=== PATIENT | male | born 2000 | race Caucasian/White ===

== ENCOUNTER → 2020-05-29 | Outpatient (CLI) | payer BC, SELFPAY ==
[2013-05-03 05:03] VITALS: BMI 21.6
== END | disposition home or self-care (01) ==
LOC: LABSPEC 14:58
PROVIDERS: PCP Family Medicine; Visit Provider Family Medicine
DX: Z20.828 Contact with and (suspected) exposure to other viral communicable diseases (principal)
CPT/HCPCS: 87635; U0002

== ENCOUNTER 2024-02-12 01:45 | Emergency (ER) | payer BC, SELFPAY ==
[2024-02-12 01:47] VITALS: BP 173/93; PULSE 101; RESP 18; TEMP 36.6; O2SAT 98; BMI 26.3
--- NOTE | 2024-02-12 02:25 | EDS_ITS ---
HPI History of Present Illness Chief Complaint: Anxiety Informant: patient and spouse/S.O. Narrative Narrative: Presents here with spouse for evaluation. Patient increase anxiety with insomnia. Symptoms last 2 to 3 weeks after reported falling out with a friend . Intermittent insomnia worsened over last 4 days. He has had suicidal thoughts without a plan. Rare alcohol use. Denies recreational drugs. Saw his PCP today Dr. Milton Estrella, started on fluoxetine magnesium and doxepin. Has not started the fluoxetine. He was told the doxepin will help him sleep he took at 9:30 PM he is unable to sleep therefore he came here. He has not seen a counselor or psychiatrist in the past. He states his PCP is aware of his suicidal thoughts. Prior similar symptoms: No PFSH PFSH Home Medications ?Medication ?Instructions ?Recorded ?Last Taken ?Type doxepin 25 mg capsule 25 mg PO QHS anxiety 02/12/24 Unknown History fluoxetine 20 mg tablet 20 mg PO DAILY 02/12/24 Unknown History magnesium oxide 400 mg (241.3 mg 400 mg PO QHS 02/12/24 Unknown History magnesium) tablet trazodone 50 mg tablet 50 mg PO QHS PRN sleep #7 tabs 02/12/24 Unknown Rx Allergy/AdvReac Type Severity Reaction Status Date / Time No Known Allergies Allergy Verified 02/12/24 01:49 Surgical History Hx of appendectomy Social History Smoking Status: Never smoker ROS ROS ED Constitutional Constitutional ED: Denies chills, fever(s) or sweats ENT ENT ED: Denies sore throat Cardiovascular Cardiovascular: Denies chest pain, leg edema, palpitations or racing heartbeat Respiratory/Chest Respiratory/Chest: Denies cough, dyspnea or dyspnea on exertion Gastrointestinal Gastrointestinal: Denies abdominal pain, diarrhea, nausea or vomiting Genitourinary Genitourinary ED: Denies dysuria, hematuria or urinary frequency Musculoskeletal Musculoskeletal: Denies back pain, extremity pain or neck pain Integumentary Denies rash or wounds Neurologic Neurologic: Denies headache(s), paresthesias or weakness Psychiatric Psychiatric: Reports anxiety, suicidal ideation and other Details: Insomnia EXAM Physical Exam Const Vital Signs: 02/12/24 01:47 Temperature 97.8 F Temperature Source Oral Pulse Rate 101 H Respiratory Rate 18 Blood Pressure 173/93 H Blood Pressure Mean 119 Pulse Ox 98 Positive well nourished and well developed General Appearance ED: well developed and NAD HEENT Reports moist mucous membranes normocephalic and atraumatic Eyes General Eye ED: Yes normal appearance of both eyes Neck full ROM Chest Wall Chest: Negative for tenderness Resp normal respiratory effort and normal air movement Effort and Inspection: symmetric chest movement; Negative for respiratory distress Cardio regular rate, regular rhythm and no murmurs Peripheral Pulses: pulses 2+ throughout GI normal to inspection, nondistended, normoactive bowel sounds and non-tender Palpation: Negative for guarding or rebound tenderness present Extremity normal to inspection General Extremety ED: Negative for edema or tenderness General Extremity: Negative for edema Neuro oriented x3 and no sensory deficits noted Sensorium / Orientation: awake and alert Psych Psych Narrative: Calm, cooperative. Suicidal ideation no plan. Normal thought content. Skin no rashes or lesions noted and no wounds MDM MDM MDM Narrative Medical decision making narrative: Interventions / MDM: Differential diagnosis: Insomnia, anxiety, suicidal ideations. Diagnosis considered but do not suspect: N/A My EKG interpretation: N/A Imaging independently reviewed and interpreted by myself: N/A External documents reviewed: N/A Test considered but not ordered:N/A ED course: Patient presenting primary concerns for insomnia. Recent stressor with following up with a friend. Suicidal ideation without any plans. He is cooperative. Do not feel he is a current threat to himself. I discussed with patient can try trazodone for his insomnia for which she agreed. He will hold his doxepin. First dose given in ED. He is given suicidal information and strict return precautions otherwise discussed if medications does work to follow-up with his PCP for continued refills. Patient's spouse understands and agrees with plan. All questions were answered. Re-evaluation: stable Disposition discussed with patient/family/significant other: Patient and spouse Case discussed with consulting clinician: N/A This note was generated with [employer] dictation software. It may contain incorrect words, spelling, and punctuation that were not noted in checking the note before signing. Discharge Plan Triage Chief Complaint: Anxiety ED Provider: Joshua Cordero Dx/Rx/DC Orders Clinical Impression: Insomnia, Anxiety, Suicidal ideation Instructions: Suicide Warning What To Do, ED Anxiety Reaction, ED Insomnia Prescriptions: New trazodone 50 mg tablet 50 mg PO QHS PRN (Reason: sleep) Qty: 7 0RF No Action doxepin 25 mg capsule 25 mg PO QHS fluoxetine 20 mg tablet 20 mg PO DAILY Patient Comments: pt has not started med yet magnesium oxide 400 mg (241.3 mg magnesium) tablet 400 mg PO QHS Primary Care Provider: Milton Estrella Referrals: Milton Estrella MD [Primary Care Provider] - 5-7 Days Activity Restrictions/Additional Instructions: Take trazodone to try to help with sleep. Do not take doxepin while using trazodone. Start your fluoxetine as prescribed by your doctor. Follow-up with Dr. Estrella for reevaluation and continued treatment. Develop worsening suicidal thoughts specially with any plans, return to the ED for reevaluation. Print Language: Luxembourger Disposition Disposition: Home, Self Care Discharge Date/Time: 02/12/24 02:40
[2024-02-12] MEDS: traZODone 50 MG Tablet PO (02:34)
== END 2024-02-12 02:40 | disposition home or self-care (01) ==
PROVIDERS: Emergency Provider Emergency Medicine; PCP Family Medicine; Visit Provider Emergency Medicine
DX: F41.9 Anxiety disorder, unspecified (principal); G47.00 Insomnia, unspecified; R45.851 Suicidal ideations
CPT/HCPCS: 99282

== ENCOUNTER 2024-07-19 08:00 | Outpatient (RCR) | payer BC, SELFPAY ==
--- NOTE | 2024-07-19 09:15 | BH.MTP_ITS ---
Master Treatment Plan Patient Information Program Physician:: Dr. Wanda Aguilar Primary Therapist:: Lisa PETTY Psychiatric Diagnoses Psychiatric Diagnoses:: Major depressive disorder, recurrent, severe without psychosis (F33.2); OCD (F42.2); Generalized anxiety disorder Diagnosis Code(s):: F 33.2; F 42.2 Estimated LOS Estimated LOS (in weeks):: 6 Problem/Goal #1 Problem/Goal #1 Stated Goal:: Pt will decrease depressive symptoms, hopelessness, isolation, thoughts of , and negative self-talk. Description of Barriers: Pt reports issues with sleep due to intrusive thoughts, but it is more under control now. Pt reports his OCD has been hindering him from living life. Functional Impact: Pt is a 24-year-old male with a history of OCD and MDD. Pt was referred to [facility] due to worsening symptoms of anxiety and depression over the past few months. Pt's mental health began to decompensate after a fall out with a friend that triggered panic and insomnia. At admission, pt presents with hopelessness, worthlessness, and passive thoughts of . Pt also has intrusive thoughts about killing himself and he has told this to his who has removed guns from the home. Pt has panic attacks several times a week. Pt's OCD is currently manifesting with sleep and includes rituals pt must do at night to get good sleep. Pt's symptoms are impacting his social functioning and his overall quality of life. Goal Relevant Strengths/Supports: Pt is established with outpatient counseling (Sita Espino) and he has a PCP that prescribes medication. Pt also has support from his and he has hobbies he enjoys. Objectives Objective #1: Stated Objective: Pt will learn and utilize 2-3 healthy coping strategies to better manage depressive symptoms as shown by a decrease of DMS-5 symptoms for depression and SI. Interventions: Through group and individual sessions, therapist will help pt identify triggers and warning signs of depression and guilt including emotional, physical, and behavioral changes. Therapist will teach pt various coping skills to manage symptoms and give pt tangible resources to use to regula te emotions. Therapist will use cognitive restructuring techniques and help pt gain awareness of negative thoughts that reinforce guilt and depression. Therapist will provide psychoeducation on maintenance cycles and help pt learn ways to break unhealthy maintenance cycles. Therapist will help pt incorporate behavioral activation and assist pt in setting SMART goals. Discharge Criteria: Pt will have met this goal when can report learning and using at least 2 coping skills to manage depressive symptoms and reduce isolation. Additionally, pt will have met this goal when pt's DSM-5 scores for depression and SI decrease. Target Date: 08/30/24 Review Date: 08/16/24 Status: open Objective #2: Stated Objective: Pt will identify at least 2-3 negative self-talk messages used to reinforce negative core beliefs, worthlessness, and isolation and replace thoughts with balanced, realistic messages. Interventions: Therapist will help pt identify distorted, negative beliefs about self and replace with more realistic, affirmative messages. Therapist will use CBT and DBT to help pt increase insight to the connection between thoughts, emotions, and behaviors. Therapist will encourage pt to practice thought challenging. Discharge Criteria: Pt will have achieved this goal when can verbalize at least 2 cognitive distortions and effectively replace those thoughts with affirmative messages. Target Date: 08/30/24 Review Date: 08/09/24 Status: open Problem/Goal #2 Problem/Goal #2 Stated Goal:: Pt will reduce overall frequency and intensity of anxiety and OCD symptoms so that daily functioning is less impaired. Description of Barriers: Pt reports issues with sleep due to intrusive thoughts, but it is more under control now. Pt reports his OCD has been hindering him from living life. Functional Impact: Pt is a 24-year-old male with a history of OCD and MDD. Pt was referred to [facility] due to worsening symptoms of anxiety and depression over the past few months. Pt's mental health began to decompensate after a fall out with a friend that triggered panic and insomnia. At admission, pt presents with hopelessness, worthlessness, and passive thoughts of . Pt also has intrusive thoughts about killing himself and he has told this to his who has removed guns from the home. Pt has panic attacks several times a week. Pt's OCD is currently manifesting with sleep and includes rituals pt must do at night to get good sleep. Pt's symptoms are impacting his social functioning and his overall quality of life. Goal Relevant Strengths/Supports: Pt is established with outpatient counseling (Sita Espino) and he has a PCP that prescribes medication. Pt also has support from his and he has hobbies he enjoys. Objectives Objective #1: Stated Objective: Pt will identify 2-3 anxiety and OCD triggers and 2 coping skills to use to manage anxiety and to reduce DSM-5 scores. Interventions: Through group and individual sessions, pt will gain awareness of anxiety and OCD triggers and learn numerous techniques to manage anxiety and OCD symptoms. Therapist will teach mindfulness and other calming techniques to manage symptoms and increase distress tolerance skills. Therapist will also help pt utilize mindfulness skills to sit with the uncomfortable to increase confidence in managing triggers. Discharge Criteria: Pt will have met this goal when pt can identify at least 2 triggers and 2 ways to cope with anxiety and OCD and when his DSM-5 scores have reduced. Target Date: 08/30/24 Review Date: 08/09/24 Status: open Objective #2: Stated Objective: Pt will improve ability to cope with OCD symptoms and reduce avoidance by setting 1-2 small exposure goals each week. Interventions: Through group and individual therapy, pt will gain skills on distress tolerance and sitting with the uncomfortable. Therapist will help pt set small, realistic exposure goals each week. Therapist will have pt practice these goals both in session and at home. Therapist will provide psychoeducation on why this is important to reducing anxiety, OCD, and phobias. Therapist will also provide psychoeducation on intrusive thinking and reducing safety behaviors. Discharge Criteria: Pt will have accomplished this goal when pt can report accomplishing at least 1 exposure goal per week and can report reduced avoidance overall. Target Date: 08/30/24 Review Date: 08/09/24 Status: open
--- NOTE | 2024-07-19 09:15 | BH.PSA_ITS ---
Source of Information Presenting Problems/Circumstances Problems, Referral Source, Mental Status, Client: Pt is a 24-year-old male with a history of OCD and MDD. Pt was referred to [facility] due to worsening symptoms of anxiety and depression over the past few months. Pt's mental health began to decompensate after a fall out with a friend that triggered panic and insomnia. At admission, pt presents with hopelessness, worthlessness, and passive thoughts of . Pt also has intrusive thoughts about killing himself and he has told this to his who has removed guns from the home. Pt has panic attacks several times a week. Pt's OCD is currently manifesting with sleep and includes rituals pt must do at night to get good sleep. Pt's symptoms are impacting his social functioning and his overall quality of life. Psychiatric Presentation Psych Issues & Need for Admission Psychiatric Issues:: 1. Major depressive disorder, recurrent, severe without psychosis (F33.2) 2. OCD (F42.2) 3. Generalized anxiety disorder Past Psychiatric History MH Treatment Hx Treatment History: No psych admits ever. No suicide attempts ever. He has a counselor current at [facility] and first had counseling at age 23. He was first depressed this year and took his first psychiatric medications of any kind this year in January 2024. He discontinued his Prozac in mid April 2024. He has had OCD since childhood but it was very mild and he did not require medications till January 2024. First hospitalization:: n/a Most recent hospitalization:: n/a Medication Trials:: Yes (pt tried prozac and stopped this) ECT Therapy:: No Age of first mental health symptoms: Pt reports OCD symptoms since childhood but they did not impact pt's functioning. Pt's first significant mental health symptoms occurred within the last year. Describe (age, circumstance, etc) any past hospitalizations: Pt denies any hospitalizations Current providers for mental health treatment (counselor, psychiatrist, clinical case manager, etc.): Pt sees Sita Espino at [facility] and he has been seeing her for one month. Development & Family of Origin Childhood Significant Childhood Events: Pt describes his childhood as good and denies any trauma at home. Pt was bullied in middle school and switched schools for this. Family Who currently lives in your home?: Pt lives with his of 7 months and their dog. Describe family composition:: Pt is an only child and he reports his parents were loving. Pt has only had one serious relationship which is with his . They have no children. Family History Family Hx of Psychiatric or AOD Problems: Mother has a history of depression. Maternal aunt has bipolar disorder and a maternal uncle has schizophrenia. Maternal grandfather had drug and alcohol abuse. Ethnicity Culture Do you identify yourself with any particular cultural, ethnic background, or community?: No Sexuality Sexual Orientation: Heterosexual Spirituality Buddhism Do you currently identify with any organized zoroastrianism?: Evangelical Beliefs Is there a particular form of support from this community you can use for your recovery?: Yes Mental Status Memory Recent Memory: Good Remote Memory: Good Concentration Concentration: Good Eye Contact Eye Contact: Fair Speech Speech: Soft Thought Process Thought Process: Obsessions and Ruminations Insight: Good Judgment: Good Behavior: Anxious Orientation Orientation: Time, Person, Place and Situation Appearance Appearance: Neat/clean Mood Mood: Anxious and Depressed Affect Affect: Appropriate/calm Suicide Assessment Suicidal Ideation Have you ever felt like hurting yourself?: Yes Please explain:: He endorses guilt, passive thoughts of , and admits that he had ego dystonic intrusive thoughts that he was going to kill himself with a gun 3 weeks ago but this was an OCD obsession and not a true desire for suicide. Pt's has removed the gun from the home. Pt reports he still has this intrusive thought occasionally and he is fearful. Were you using ETOH/drugs at the time?: No Suicidal Intentional Rating Scale (SIRS): Suicidal thoughts (past) (see above.) Physician Notification Violent Behavior/Abuse History Homicidal Ideation Do you have any homicidal thoughts? If so, explain:: No Abuse Have you ever been abused?: No Life Events Are there any other significant life events?: Hardships (Pt was having issues with insomnia that triggered worsening mental health symptoms.) Safety Do you ever feel threatened in your home? If yes, describe:: No Adult Social History Age 16 to Present Describe your current support system:: For primary support the patient has his and he describes their marriage as good. Substance Use Substance Substance Use Type: Alcohol, Marijuana and Caffeine Specific Drugs What specific drugs have you used?: Non-smoker. No vaping. Used to use marijuana daily for 2 years but has not used marijuana since 1 year ago. Marijuana increased his anxiety and that is why he stopped it. He drinks less than 1 drink of alcohol a week. No other drug use and no rehab ever. 2-3 cups of coffee each morning. IV Substance Use Do you have a history of IV use?: denies. Leisure/Social Activities Interests What do you enjoy or might be interested in learning about?: enjoys riding and being outdoors and working out at the gym. Pt also enjoys disc golf. 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 Service Service Have you ever been in the ?: No Legal History Records Have you had any past legal charges?: No Do you have any current legal charges?: No Have you ever been incarcerated? If yes, describe:: No Court Orders Have you had any past court orders for psychiatric treatment?: No Do you have a present court order for psychiatric treatment?: No Problem Checklist Current Problem Areas Problem List: Depressed mood/sad, Anxiety, Inattention and Sleep problems Discharge Planning Needs Anticipated Follow-Up Mental Health Center (Name/Phone Number):: [facility] Private Therapist/Psychiatrist:: Sita Espino Pressurizer's Assessment Client's Needs What are the client's strengths?: Pt is motivated and connected with outpatient counseling. Pt also is seeing a benefit from his medication adjustment. Diagnoses Diagnoses Diagnosis #1:: Major depressive disorder, recurrent, severe without psychosis (F33.2) Diagnosis #2:: OCD (F42.2) Diagnosis #3:: HIREN Interpretive Summary Interpretive Summary Interpretive Summary: Pt is a 24-year-old male with a history of OCD, anxiety and depression who was referred by a friend of a friend to [facility] for worsening symptoms of depression which worsened after a fall out with a friend in January 2024. Pt currently lives with his of 7 months and their dog. Pt states that following the argument and end of the friendship in January 2024 he began to have severe insomnia which has since resolved and he also felt panic at the time. He was placed on Prozac but says his depression worsened on Prozac so it was discontinued. His depression reached the point that he went to crisis with suicidal ideation with a plan to kill himself with a gun on June 21, 2024. Pt was not admitted to the psychiatric unit at the time. Pt reports belief that he was depressed, but those could have been intrusive thoughts. His has removed the guns from the home and he has no access to them now. 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 Pt states that he has a lot of anxiety around sleeping normally and his intrusive thoughts revolve around mostly being afraid of going to sleep or being afraid that he is going to have difficulty getting to sleep. His rituals include touching things, checking things and counting things. The rituals increased after the argument with his friend but they have not gone back to baseline. For primary support Pt has his and he describes their marriage as good. He endorses hopelessness, worthlessness, sadness although he feels better than he did 2 weeks ago. He denies anhedonia and enjoys riding and being outdoors and working out at the gym. He is sleeping 6 to 8 hours a night and his appetite and weight are unchanged. Energy level is okay as his concentration. He endorses guilt, passive thoughts of , and admits that he had ego dystonic intrusive thoughts that he was going to kill himself with a gun 3 weeks ago but this was an OCD obsession and not a true desire for suicide. He denies homicidal ideation, active or passive true suicidal ideation, hallucinations, delusions or symptoms of jignesh ever. He is a worrier by nature and ruminates negatively. He denies any history of self-harm, seizure or head trauma. He drinks 2 to 3 cups of coffee but only in the morning. He has panic attacks about once a week. He denies eating disorder, trauma or PTSD. Pt denies substance abuse history and reports drinking less than one alcoholic beverage a week. Treatment Plan Recommendations Recommendations Guidelines Recommendations:: Pt will start IOP as the structure, support, education and group therapy will hopefully prevent worsening of Pt's symptoms which could result in hospital admission. The risk, options, possible complications and side effects of the medication were discussed between pt and Dr. Aguilar. Pt is encouraged to attend IOP 3 times a week for 6-8 weeks.
--- NOTE | 2024-07-19 09:15 | BH.PSA_ITS ---
Source of Information Presenting Problems/Circumstances Problems, Referral Source, Mental Status, Client: Pt is a 24-year-old male with a history of OCD and MDD. Pt was referred to [facility] due to worsening symptoms of anxiety and depression over the past few months. Pt's mental health began to decompensate after a fall out with a friend that triggered panic and insomnia. At admission, pt presents with hopelessness, worthlessness, and passive thoughts of . Pt also has intrusive thoughts about killing himself and he has told this to his who has removed guns from the home. Pt has panic attacks several times a week. Pt's OCD is currently manifesting with sleep and includes rituals pt must do at night to get good sleep. Pt's symptoms are impacting his social functioning and his overall quality of life. Psychiatric Presentation Psych Issues & Need for Admission Psychiatric Issues:: 1. Major depressive disorder, recurrent, severe without psychosis (F33.2) 2. OCD (F42.2) 3. Generalized anxiety disorder Past Psychiatric History MH Treatment Hx Treatment History: No psych admits ever. No suicide attempts ever. He has a counselor current at [facility] and first had counseling at age 23. He was first depressed this year and took his first psychiatric medications of any kind this year in January 2024. He discontinued his Prozac in mid April 2024. He has had OCD since childhood but it was very mild and he did not require medications till January 2024. First hospitalization:: n/a Most recent hospitalization:: n/a Medication Trials:: Yes (pt tried prozac and stopped this) ECT Therapy:: No Age of first mental health symptoms: Pt reports OCD symptoms since childhood but they did not impact pt's functioning. Pt's first significant mental health symptoms occurred within the last year. Describe (age, circumstance, etc) any past hospitalizations: Pt denies any hospitalizations Current providers for mental health treatment (counselor, psychiatrist, casework specialist, etc.): Pt sees Sita Espino at [facility] and he has been seeing her for one month. Development & Family of Origin Childhood Significant Childhood Events: Pt describes his childhood as good and denies any trauma at home. Pt was bullied in middle school and switched schools for this. Family Who currently lives in your home?: Pt lives with his of 7 months and their dog. Describe family composition:: Pt is an only child and he reports his parents were loving. Pt has only had one serious relationship which is with his . They have no children. Family History Family Hx of Psychiatric or AOD Problems: Mother has a history of depression. Maternal aunt has bipolar disorder and a maternal uncle has schizophrenia. Maternal grandfather had drug and alcohol abuse. Ethnicity Culture Do you identify yourself with any particular cultural, ethnic background, or community?: No Sexuality Sexual Orientation: Heterosexual Spirituality Mandaen Do you currently identify with any organized sabianist?: Gnosticism Beliefs Is there a particular form of support from this community you can use for your recovery?: Yes Mental Status Memory Recent Memory: Good Remote Memory: Good Concentration Concentration: Good Eye Contact Eye Contact: Fair Speech Speech: Soft Thought Process Thought Process: Obsessions and Ruminations Insight: Good Judgment: Good Behavior: Anxious Orientation Orientation: Time, Person, Place and Situation Appearance Appearance: Neat/clean Mood Mood: Anxious and Depressed Affect Affect: Appropriate/calm Suicide Assessment Suicidal Ideation Have you ever felt like hurting yourself?: Yes Please explain:: He endorses guilt, passive thoughts of , and admits that he had ego dystonic intrusive thoughts that he was going to kill himself with a gun 3 weeks ago but this was an OCD obsession and not a true desire for suicide. Pt's has removed the gun from the home. Pt reports he still has this intrusive thought occasionally and he is fearful. Were you using ETOH/drugs at the time?: No Suicidal Intentional Rating Scale (SIRS): Suicidal thoughts (past) (see above.) Physician Notification Violent Behavior/Abuse History Homicidal Ideation Do you have any homicidal thoughts? If so, explain:: No Abuse Have you ever been abused?: No Life Events Are there any other significant life events?: Hardships (Pt was having issues with insomnia that triggered worsening mental health symptoms.) Safety Do you ever feel threatened in your home? If yes, describe:: No Adult Social History Age 16 to Present Describe your current support system:: For primary support the patient has his and he describes their marriage as good. Substance Use Substance Substance Use Type: Alcohol, Marijuana and Caffeine Specific Drugs What specific drugs have you used?: Non-smoker. No vaping. Used to use marijuana daily for 2 years but has not used marijuana since 1 year ago. Marijuana increased his anxiety and that is why he stopped it. He drinks less than 1 drink of alcohol a week. No other drug use and no rehab ever. 2-3 cups of coffee each morning. IV Substance Use Do you have a history of IV use?: denies. Leisure/Social Activities Interests What do you enjoy or might be interested in learning about?: enjoys riding and being outdoors and working out at the gym. Pt also enjoys disc golf. 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 Service Service Have you ever been in the ?: No Legal History Records Have you had any past legal charges?: No Do you have any current legal charges?: No Have you ever been incarcerated? If yes, describe:: No Court Orders Have you had any past court orders for psychiatric treatment?: No Do you have a present court order for psychiatric treatment?: No Problem Checklist Current Problem Areas Problem List: Depressed mood/sad, Anxiety, Inattention and Sleep problems Discharge Planning Needs Anticipated Follow-Up Mental Health Center (Name/Phone Number):: [facility] Private Therapist/Psychiatrist:: Sita Espino Order Management Specialist's Assessment Client's Needs What are the client's strengths?: Pt is motivated and connected with outpatient counseling. Pt also is seeing a benefit from his medication adjustment. Diagnoses Diagnoses Diagnosis #1:: Major depressive disorder, recurrent, severe without psychosis (F33.2) Diagnosis #2:: OCD (F42.2) Diagnosis #3:: HIREN Interpretive Summary Interpretive Summary Interpretive Summary: Pt is a 24-year-old male with a history of OCD, anxiety and depression who was referred by a friend of a friend to [facility] for worsening symptoms of depression which worsened after a fall out with a friend in January 2024. Pt currently lives with his of 7 months and their dog. Pt states that following the argument and end of the friendship in January 2024 he began to have severe insomnia which has since resolved and he also felt panic at the time. He was placed on Prozac but says his depression worsened on Prozac so it was discontinued. His depression reached the point that he went to crisis with suicidal ideation with a plan to kill himself with a gun on June 21, 2024. Pt was not admitted to the psychiatric unit at the time. Pt reports belief that he was depressed, but those could have been intrusive thoughts. His has removed the guns from the home and he has no access to them now. 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 Pt states that he has a lot of anxiety around sleeping normally and his intrusive thoughts revolve around mostly being afraid of going to sleep or being afraid that he is going to have difficulty getting to sleep. His rituals include touching things, checking things and counting things. The rituals increased after the argument with his friend but they have not gone back to baseline. For primary support Pt has his and he describes their marriage as good. He endorses hopelessness, worthlessness, sadness although he feels better than he did 2 weeks ago. He denies anhedonia and enjoys riding and being outdoors and working out at the gym. He is sleeping 6 to 8 hours a night and his appetite and weight are unchanged. Energy level is okay as his concentration. He endorses guilt, passive thoughts of , and admits that he had ego dystonic intrusive thoughts that he was going to kill himself with a gun 3 weeks ago but this was an OCD obsession and not a true desire for suicide. He denies homicidal ideation, active or passive true suicidal ideation, hallucinations, delusions or symptoms of jignesh ever. He is a worrier by nature and ruminates negatively. He denies any history of self-harm, seizure or head trauma. He drinks 2 to 3 cups of coffee but only in the morning. He has panic attacks about once a week. He denies eating disorder, trauma or PTSD. Pt denies substance abuse history and reports drinking less than one alcoholic beverage a week. Treatment Plan Recommendations Recommendations Guidelines Recommendations:: Pt will start IOP as the structure, support, education and group therapy will hopefully prevent worsening of Pt's symptoms which could result in hospital admission. The risk, options, possible complications and side effects of the medication were discussed between pt and Dr. Aguilar. Pt is encouraged to attend IOP 3 times a week for 6-8 weeks.
--- NOTE | 2024-07-19 09:15 | BH.COMM ---
Communication Note Communication with Client Communication Note: Met with pt to complete initial paperwork and administer the CSSR-S screening and risk assessment. Pt is a mild risk as pt reports passive thoughts of and admits that he had ego dystonic intrusive thoughts that he was going to kill himself with a gun 3 weeks ago but this was an OCD obsession and not a true desire for suicide per pt?s report. Pt denies any thoughts of plan, intent, or thoughts of methods for suicide. Pt denies any history of suicide attempts and denies self-harm. No access to weapons- guns removed from the home. Pt is future oriented. Discussed case with Dr. Aguilar and pt will be admitted to [facility] tx with a diagnosis of MDD, recurrent, severe, without psychosis F 33.2
--- NOTE | 2024-07-19 09:15 | BH.COMM ---
Communication Note Communication with Client Communication Note: Met with pt to complete initial paperwork and administer the CSSR-S screening and risk assessment. Pt is a mild risk as pt reports passive thoughts of and admits that he had ego dystonic intrusive thoughts that he was going to kill himself with a gun 3 weeks ago but this was an OCD obsession and not a true desire for suicide per pt?s report. Pt denies any thoughts of plan, intent, or thoughts of methods for suicide. Pt denies any history of suicide attempts and denies self-harm. No access to weapons- guns removed from the home. Pt is future oriented. Discussed case with Dr. Aguilar and pt will be admitted to [facility] tx with a diagnosis of MDD, recurrent, severe, without psychosis F 33.2
--- NOTE | 2024-07-19 09:59 | BH.MDN_ITS ---
Multi-Disciplinary Note Note 30-min Individual: Time Started:: 08:40 Date: 07/19/24 Purpose of session/treatment goals addressed:: To gather information on pt's current stressors, symptoms, triggers, history, and tx goals. Another goal was to build rapport and provide emotional support. Eye Contact:: Good Motor Activity:: Appropriate Appearance:: Neat Speech:: Soft Mood:: Anxious and Depressed Affect:: Constricted Thoughts:: Linear, Logical and No evidence of hallucinations/delusions noted Staff Interventions:: rapport building, strengths perspective, treatment planning, completed risk assessment / safety planning and goal setting Client Response:: Pt responded well to session, open to meeting with therapist. Pt reports feeling depressed and anxious, but he is hopeful that his recent medication adjustment is going to help level me out. Pt has been seeing Sita Espino at [facility] and he has found her helpful so far. Pt shared that he has intrusive thoughts that change in theme, and currently the theme has been not being able to sleep. Pt's sleep has began to improve, but pt shared he struggled with insomnia for a while which lead to pt seeking IOP. Pt reported he has certain rituals he must do every night to help with sleep. Before sleep, pt shared he had intrusive thoughts about different parts of his body which would case anxiety and even triggered sexual intimacy problems. Pt stated he is open to learning more about intrusive thoughts and ERP to help with his OCD. Pt's first day of IOP tx, so the main goal is for pt to feel comfortable and supported. Pt and therapist will meet weekly. Risks/Concerns:: Pt reports having thoughts of after long days of work. Pt reports he had thoughts of suicide within the past month that pt scared pt. Pt told his he was thinking of shooting himself and his removed the gun from their home. Pt's suicidal ideations could be intrusive thoughts, but pt and his family are taking precautions. Pt denies any active SI, plan, or intent to this therapist. Progress Toward Goals/Plan:: Pt's first day of IOP tx, no progress to document. Pt reports he has been struggling with anxiety, depression, and intrusive thoughts for a while. Pt reports he wants to work on getting back to sleeping without rituals and worry, feeling like himself again, and improving his ability to manage intrusive thoughts. Pt receptive to using tools from ERP and the overcoming unwanted intrusive thoughts workbook. Pt will continue IOP tx to prevent decompensation, improve daily functioning, and increase distress tolerance. Time Stopped:: 09:00
--- NOTE | 2024-07-19 10:15 | BH.SGPN.GN ---
Behaviors/Verbalizations/Mental Status: []Pt alert and oriented, neatly dressed and groomed. Eye contact good. Motor activity appropriate. Speech within normal limits. Affect congruent, mood anxious and depressed. Thoughts linear, logical, no signs of hallucinations or delusions. Client Response/Progress/Benefit: [] Pt was attentive during psychoeducation and participated in group activity. Group discussed what contributes to a person?s perspective and how perspective can positively or negatively impact mental health treatment. Pt reflected on their perspective today and how it is impacting them. Pt shared their perspective is more negative and reported it could cause negative outcomes because I'm not open enough.?Pt appeared to benefit from increasing awareness of different perspectives and how they can affect mental health. Pt will continue IOP tx to prevent decompensation, improve daily functioning, and gain healthy coping skills. Narrative Note: []
--- NOTE | 2024-07-19 10:25 | BH.NA ---
Physical Data Vital Signs Pulse Rate: 87 Blood Pressure: 133/76 Height/Weight Height: 1.88 m Weight:: 86.183 kg Weight in Pounds: 190.0 lbs Current Medication Compliance Medication Compliance Do you take your medication as prescribed?: Yes Nutritional History Appetite Nutritional Instructions: Describe your appetite:: Good Additional nutritional information:: Client denies recent change in appetite or weight. Functional Assessment Sleep Pattern Describe any problems with sleeping: Client states he has been sleeping about 6-8 hours per night most nights. Sensory/Communication Assess Communication Problems Do you have difficulty understanding what people are saying?: No Surgical History Surgical History Have you had any surgeries? If so, list type and date:: Yes (appendectomy) Substance Abuse Substance Abuse Please describe substance abuse in the last 30 days:: Client reports occasional social alcohol use. Client states he is a former cigarette smoker and former vape user. Client states he has used marijuana in the past, but quit about 1 year ago. Client states he drinks about 3 cups of coffee per day but he stops caffeine use at 3pm. Mental Status Summary Mental Status Significant Findings/Observations on Appearance and Mood:: Client is alert and oriented x 4. Client is casually groomed with good hygiene. Client is cooperative with assessment. Client makes fair eye contact. Client's voice has normal rate and volume. Client has a restricted affect. Client makes logical associations and has normal processing. Client denies delusions/hallucinations. Client reports having SI in the past month, but denies current SI. Suicide Assessment Suicidal Ideation Are you currently or have you been suicidal in the past?: Yes (SI with thoughts of methods in the past, denies SI at this time) Physician Notification Past Psychiatric History MH Treatment Hx Past Psychiatric Medications:: Zoloft (side effects), Prozac (states at first he thought it made his depression worse, but states now he thinks maybe the dose just wasn't high enough and he was not having side effects on this medication) Age of first mental health symptoms: Client states he has noticed that he had OCD symptoms for a long time, but states he was just diagnosed in January 2024 when he got mental health treatment for the first time. Describe (age, circumstance, etc) any past hospitalizations: None. Current providers for mental health treatment (counselor, psychiatrist, classification case manager, etc.): Sita Espino PhD at [facility] for counseling, [facility] [employer] [facility] [facility] at [facility] for psychiatry Fall Risk Assessment Age Age: Less than 60 Mental Status Mental Status: Willing & able to ask for assistance when needed Physical Status Physical Status: No problems Impairments Impairments: None Elimination Elimination: Continent AND independent Gait or Balance Gait or Balance: Walks independently Hx of Falls History of falls in the past 6 months: No known history Medications/Substances Psychotropics:: Antidepressants Medications/substances used within the past 24 hours or ordered to administer: 1-2 of the medications/substances listed above Total Score Total Points:: 1 RN Summary of Impressions Impressions Recommendations Impressions: Psychiatric Issues: 1. Major depressive disorder, recurrent, severe without psychosis (F33.2) 2. OCD (F42.2) 3. Generalized anxiety disorder Level of Care How do the client's current symptoms and functional deficits support need for this level of care?: Client was referred to IOP for worsening depression, anxiety and OCD. Client states he had a falling out with a friend in January 2024 which lead to insomnia. Client states insomnia was the reason he first looked for help with his mental health, and states he was then diagnosed with OCD. Client states his depression has been worsening in the last month or more. Client did have SI with thoughts of methods about 1 month ago. Client denies SI at this time. Client states he does have intrusive thoughts, which lead to his compulsions (standing and sitting over and over, checking locks, checking the stove, touching things). Client reports he has been having some panic attacks with shortness of breath that last a few minutes, stating his last one was about 1 week ago. IOP will promote gains and prevent further decompensation while providing social support and skills training.
[2024-07-19 11:07] VITALS: BP 133/76; PULSE 87
--- NOTE | 2024-07-19 11:15 | BH.SGPN.GN ---
Narrative Note: []Behaviors/Verbalizations/Mental Status: []Pt alert and oriented, casually dressed and groomed. Eye contact fair. Motor activity appropriate. Speech within normal limits. Affect congruent, mood anxious. Thoughts linear, logical, no signs of hallucinations or delusions. Client Response/Progress/Benefit: []Pt was attentive and contributed to group discussion. Pt worked with group to identify strategies that can help with challenging negative perspective. Pt stated they can practice looking at positive outcomes to challenge negative perspective. Pt completed strengths exploration worksheet, identifying personal strengths. Pt able to acknowledge how these strengths are helping pt and can continue to help pt in mental health journey. Pt identified wanting to work on leaning on strength of creativity and humor. Benefited from identifying personal strengths and strategies for enhancing use of identified strengths. Pt will continue IOP tx to continue improve functioning, decrease anxious thoughts, and prevent decompensation. Narrative Note: []
--- NOTE | 2024-07-19 12:18 | BH.PSY.EVA_ITS ---
Psychiatric Evaluation Initial Evaluation Initial Evaluation: History of Present Illness: [] The patient is a 24-year-old male with a history of OCD, anxiety and depression who was referred by a friend of a friend to the [facility] behavioral health IOP for worsening symptoms of depression which worsened after a fall out with a friend in January 2024. The patient currently lives with his of 7 months and their dog. Patient states that following the argument and end of the friendship in January 2024 he began to have severe insomnia which has since resolved and he also felt panic at the time. He was placed on Prozac but says his depression worsened on Prozac so it was discontinued. His depression reached the point that he went to crisis with suicidal ideation with a plan to kill himself with a gun on June 21, 2024. Patient was not admitted to psychiatric unit at the time. 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 The patient states that he has a lot of anxiety around sleeping normally and his intrusive thoughts revolve around mostly being afraid of going to sleep or being afraid that he is going to have difficulty getting to sleep. His rituals include touching things, checking things and counting things. The rituals increased after the argument with his friend but they have not gone back to baseline. For primary support the patient has his and he describes their marriage as good. He endorses hopelessness, worthlessness, sadness although he feels better than he did 2 weeks ago. He denies anhedonia and enjoys riding and being outdoors and working out at the gym. He is sleeping 6 to 8 hours a night and his appetite and weight are unchanged. Energy level is okay as his concentration. He endorses guilt, passive thoughts of , and admits that he had ego dystonic intrusive thoughts that he was going to kill himself with a gun 3 weeks ago but this was an OCD obsession and not a true desire for suicide. He denies homicidal ideation, active or passive true suicidal ideation, hallucinations, delusions or symptoms of jignesh ever. He is a worrier by nature and ruminates negatively. He denies any history of self-harm, seizure or head trauma. He drinks 2 to 3 cups of coffee but only in the morning. He has panic attacks about once a week. He denies eating disorder, trauma or PTSD. His has removed the guns from the home and he has no access to them now. Current Psychiatric Medications: [] Clomipramine 150 mg p.o. nightly (dose increased 1 week ago); Zoloft discontinued in April 2024 and Prozac discontinued prior to starting clomipramine. The Prozac helped him but the Zoloft gave him bad side effects. Trazodone 50 mg p.o. nightly; hydroxyzine 50 mg p.o. as needed for sleep but not using it much. Past Psychiatric History: [] No psych admits ever. No suicide attempts ever. He has a counselor and first had counseling at age 23. He was first depressed this year and took his first psychiatric medications of any kind this year in January 2024. He discontinued his Prozac in mid April 2024. He has had OCD since childhood but it was very mild and he did not require medications till January 2024. Substance Use History: [] Non-smoker. No vaping. Used to use marijuana daily for 2 years but has not used marijuana since 1 year ago. Marijuana increased his anxiety and that is why he stopped it. He drinks less than 1 drink of alcohol a week. No other drug use and no rehab ever. Allergies: [] No known allergies Medications: [] Psych meds as dictated above and no other medications. M agnesium supplement only. Past Medical History: [] Denies any medical issues or illnesses. Sexual function is okay but was decreased when he took Zoloft. He had an appendectomy in the past and removal of a benign arm tumor but no other surgeries. Family Psychiatric History: [] Mother is 46 years old and father is 55 years old. Mother has a history of depression. Maternal aunt has bipolar disorder and a maternal uncle has schizophrenia. Maternal grandfather had drug and alcohol abuse. No completed suicides in the family. Personal/Social History: [] Patient was born and raised in [facility] and describes his childhood as good, happy. He was an only child and his parents were and were loving. He denies any physical, verbal or sexual abuse in childhood or adulthood. He did okay in school but states he was bullied in seventh grade but changed schools in eighth grade and did well after that. He graduated high school and got a BA in [employer] writing in [employer] science from [employer]. He has had 1 serious relationship which is his of 7 months who is 24 years old and she works as a secondary market manager at an auction place. The patient has had no other serious relationships. Legal History: [] No arrests. 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 Review of Systems: [] Review of systems negative except as noted in the present illness. Vital Signs: [] Vital signs are reviewed the nurses notes and updated and the patient is deemed medically able to participate in the IOP. Mental Status Examination: [] The patient is a 24-year-old male who appears normal for stated age and is casually dressed and groomed with good hygiene. He is ambulatory with a normal gait and has no psychomotor agitation or retardation. Eye contact is good and speech is normal rate and rhythm and fluent with no pressure. Mood is depressed and anxious. Affect is constricted. Thought process is goal-directed and organized. Thought content: There is evidence of passive thoughts of but there is no evidence of active or passive suicidal ideation. There is evidence of an intrusive, obsessive thoughts of suicidal ideation that occurred 3 weeks ago but was ego-dystonic to the patient and was from OCD. There is no evidence of homicidal ideation, hallucinations, delusions or jignesh. Reality testing is intact. Intelligence is above average. Judgment is intact. Impulsivity is low. Insight: Limited but some present. Diagnoses: [] 1. Major depressive disorder, recurrent, severe without psychosis (F33.2) 2. OCD (F42.2) 3. Generalized anxiety disorder Plan: [] The patient will start the IOP in behavioral health at [facility] as the structure, support, education and group therapy will hopefully prevent worsening of the patient's symptoms which could result in hospital admission. The risk, options, possible complications and side effects of the medication were discussed with the patient and he understands accepts these. The patient complains of constipation from clomipramine and would like to decrease the dose and add another medication for depression and anxiety and OCD. The patient agrees to try Prozac 10 mg p.o. daily and prescription is sent in for this. In 2 weeks he will follow-up with the physician and if he is tolerating the Prozac it will then be increased and the clomipramine will be decreased to 100 mg p.o. daily in 2 weeks. Patient is also encouraged to try MiraLAX for his constipation once daily. The patient will follow-up with his outpatient providers and the IOP physician will see the patient in follow-up in 2 weeks.
--- NOTE | 2024-07-19 12:18 | BH.PSY.EVA_ITS ---
Psychiatric Evaluation Initial Evaluation Initial Evaluation: History of Present Illness: [] The patient is a 24-year-old male with a history of OCD, anxiety and depression who was referred by a friend of a friend to the [facility] behavioral health IOP for worsening symptoms of depression which worsened after a fall out with a friend in January 2024. The patient currently lives with his of 7 months and their dog. Patient states that following the argument and end of the friendship in January 2024 he began to have severe insomnia which has since resolved and he also felt panic at the time. He was placed on Prozac but says his depression worsened on Prozac so it was discontinued. His depression reached the point that he went to crisis with suicidal ideation with a plan to kill himself with a gun on June 21, 2024. Patient was not admitted to psychiatric unit at the time. 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 The patient states that he has a lot of anxiety around sleeping normally and his intrusive thoughts revolve around mostly being afraid of going to sleep or being afraid that he is going to have difficulty getting to sleep. His rituals include touching things, checking things and counting things. The rituals increased after the argument with his friend but they have not gone back to baseline. For primary support the patient has his and he describes their marriage as good. He endorses hopelessness, worthlessness, sadness although he feels better than he did 2 weeks ago. He denies anhedonia and enjoys riding and being outdoors and working out at the gym. He is sleeping 6 to 8 hours a night and his appetite and weight are unchanged. Energy level is okay as his concentration. He endorses guilt, passive thoughts of , and admits that he had ego dystonic intrusive thoughts that he was going to kill himself with a gun 3 weeks ago but this was an OCD obsession and not a true desire for suicide. He denies homicidal ideation, active or passive true suicidal ideation, hallucinations, delusions or symptoms of jignesh ever. He is a worrier by nature and ruminates negatively. He denies any history of self-harm, seizure or head trauma. He drinks 2 to 3 cups of coffee but only in the morning. He has panic attacks about once a week. He denies eating disorder, trauma or PTSD. His has removed the guns from the home and he has no access to them now. Current Psychiatric Medications: [] Clomipramine 150 mg p.o. nightly (dose increased 1 week ago); Zoloft discontinued in April 2024 and Prozac discontinued prior to starting clomipramine. The Prozac helped him but the Zoloft gave him bad side effects. Trazodone 50 mg p.o. nightly; hydroxyzine 50 mg p.o. as needed for sleep but not using it much. Past Psychiatric History: [] No psych admits ever. No suicide attempts ever. He has a counselor and first had counseling at age 23. He was first depressed this year and took his first psychiatric medications of any kind this year in January 2024. He discontinued his Prozac in mid April 2024. He has had OCD since childhood but it was very mild and he did not require medications till January 2024. Substance Use History: [] Non-smoker. No vaping. Used to use marijuana daily for 2 years but has not used marijuana since 1 year ago. Marijuana increased his anxiety and that is why he stopped it. He drinks less than 1 drink of alcohol a week. No other drug use and no rehab ever. Allergies: [] No known allergies Medications: [] Psych meds as dictated above and no other medications. M agnesium supplement only. Past Medical History: [] Denies any medical issues or illnesses. Sexual function is okay but was decreased when he took Zoloft. He had an appendectomy in the past and removal of a benign arm tumor but no other surgeries. Family Psychiatric History: [] Mother is 46 years old and father is 55 years old. Mother has a history of depression. Maternal aunt has bipolar disorder and a maternal uncle has schizophrenia. Maternal grandfather had drug and alcohol abuse. No completed suicides in the family. Personal/Social History: [] Patient was born and raised in [facility] and describes his childhood as good, happy. He was an only child and his parents were and were loving. He denies any physical, verbal or sexual abuse in childhood or adulthood. He did okay in school but states he was bullied in seventh grade but changed schools in eighth grade and did well after that. He graduated high school and got a BA in [employer] writing in [employer] science from [employer]. He has had 1 serious relationship which is his of 7 months who is 24 years old and she works as a music manager at an auction place. The patient has had no other serious relationships. Legal History: [] No arrests. 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 Review of Systems: [] Review of systems negative except as noted in the present illness. Vital Signs: [] Vital signs are reviewed the nurses notes and updated and the patient is deemed medically able to participate in the IOP. Mental Status Examination: [] The patient is a 24-year-old male who appears normal for stated age and is casually dressed and groomed with good hygiene. He is ambulatory with a normal gait and has no psychomotor agitation or retardation. Eye contact is good and speech is normal rate and rhythm and fluent with no pressure. Mood is depressed and anxious. Affect is constricted. Thought process is goal-directed and organized. Thought content: There is evidence of passive thoughts of but there is no evidence of active or passive suicidal ideation. There is evidence of an intrusive, obsessive thoughts of suicidal ideation that occurred 3 weeks ago but was ego-dystonic to the patient and was from OCD. There is no evidence of homicidal ideation, hallucinations, delusions or jignesh. Reality testing is intact. Intelligence is above average. Judgment is intact. Impulsivity is low. Insight: Limited but some present. Diagnoses: [] 1. Major depressive disorder, recurrent, severe without psychosis (F33.2) 2. OCD (F42.2) 3. Generalized anxiety disorder Plan: [] The patient will start the IOP in behavioral health at [facility] as the structure, support, education and group therapy will hopefully prevent worsening of the patient's symptoms which could result in hospital admission. The risk, options, possible complications and side effects of the medication were discussed with the patient and he understands accepts these. The patient complains of constipation from clomipramine and would like to decrease the dose and add another medication for depression and anxiety and OCD. The patient agrees to try Prozac 10 mg p.o. daily and prescription is sent in for this. In 2 weeks he will follow-up with the physician and if he is tolerating the Prozac it will then be increased and the clomipramine will be decreased to 100 mg p.o. daily in 2 weeks. Patient is also encouraged to try MiraLAX for his constipation once daily. The patient will follow-up with his outpatient providers and the IOP physician will see the patient in follow-up in 2 weeks.
--- NOTE | 2024-07-19 12:32 | BH.DR.ITP ---
Initial Treatment Plan Patient Information Visit Information: ADMISSION DATE: EXPECTED LOS: 4-6 weeks Problems/Symptoms Problem #1:: Depression Symptom:: Sadness, hopelessness, worthlessness, guilt, biological disruption of sleep, passive thoughts of Problem #2:: Anxiety Symptom:: Worry, rumination, intrusive thoughts and rituals, panic attacks
--- NOTE | 2024-07-21 09:05 | BH.SGPN.GN ---
Behaviors/Verbalizations/Mental Status: [] Eye contact is good. Motor activity is appropriate. Appearance is casual. Speech is Appropriate. Mood is anxious. Affect is congruent. Thoughts are linear and logical. No evidence of psychosis. Reviewed daily check in sheet and no reports of suicidal ideations or intent. Client Response/Progress/Benefit: [] Pt participated at times during the group discussions. Attentive. Daily symptom tracker notes 3/5 for anxiety and 1/5 for depression. Shared recent mental health wins. He is contemplating making a career change as he is finding that working from home may be negatively impacting his mental health. He elaborated more on this. Progress noted. Benefited from group support, encouragement, and feedback. Will continue in IOP to maintain safety, prevent decompensation, and increase healthy coping. Narrative Note: []
--- NOTE | 2024-07-21 10:10 | BH.SGPN.GN ---
Behaviors/Verbalizations/Mental Status: [] Client alert and oriented, casually dressed and groomed. Eye contact good. Motor activity appropriate. Speech within normal limits. Affect congruent, mood euthymic. Thoughts linear, logical, no signs of hallucinations or delusions. Client Response/Progress/Benefit: [] Client responded well to session AEB providing input, taking notes throughout and listening attentively to others. Client was attentive throughout group activity identifying famous individuals and how they overcame failure to be successful. Client helped group identify how fear of failure can impact mental health and relationships Group identified it leads to self-sabotage, low self confidence, not trying, and isolation. Client participated in experiential activity, working with group members to problem solve. Appeared to benefit from increased knowledge of fear of failure. Will continue IOP tx to improve self-confidence, reduce distorted thinking patterns, and reduce avoidance. Narrative Note: [] Behaviors/Verbalizations/Mental Status: [] Client alert and oriented, casually dressed and groomed. Eye contact good. Motor activity appropriate. Speech within normal limits. Affect congruent, mood euthymic. Thoughts linear, logical, no signs of hallucinations or delusions. Client Response/Progress/Benefit: [] Client responded well to session AEB providing input, taking notes throughout and listening attentively to others. Client was attentive throughout group activity identifying famous individuals and how they overcame failure to be successful. Client helped group identify how fear of failure can impact mental health and relationships Group identified it leads to self-sabotage, low self confidence, not trying, and isolation. Client participated in experiential activity, working with group members to problem solve. Appeared to benefit from increased knowledge of fear of failure. Will continue IOP tx to improve self-confidence, reduce distorted thinking patterns, and reduce avoidance. Narrative Note: []
--- NOTE | 2024-07-21 11:10 | BH.SGPN.GN ---
Behaviors/Verbalizations/Mental Status: [] Client alert and oriented, casually dressed and groomed. Eye contact good. Motor activity appropriate. Speech within normal limits. Affect congruent, mood euthymic. Thoughts linear, logical, no signs of hallucinations or delusions. Client Response/Progress/Benefit: [] Client responded well to session, engaged in the experiential activity and attentive throughout group processing. 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 Client completed fear of failure worksheet and was able to identify thoughts and behaviors that reinforce personal fear of failure including self comparison and fear of rejection. Client participated in small group discussion regarding strategies to overcome fear of failure. Identified wanting to work on utilizing opposite action and consistency. Appeared to benefit from increased knowledge of strategies to combat fear of failure and gaining self-awareness. Client will continue IOP tx to promote gains in reduced depressive symptoms and to reduce anxiety and avoidance. Narrative Note: [] Behaviors/Verbalizations/Mental Status: [] Client alert and oriented, casually dressed and groomed. Eye contact good. Motor activity appropriate. Speech within normal limits. Affect congruent, mood euthymic. Thoughts linear, logical, no signs of hallucinations or delusions. Client Response/Progress/Benefit: [] Client responded well to session, engaged in the experiential activity and attentive throughout group processing. 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 Client completed fear of failure worksheet and was able to identify thoughts and behaviors that reinforce personal fear of failure including self comparison and fear of rejection. Client participated in small group discussion regarding strategies to overcome fear of failure. Identified wanting to work on utilizing opposite action and consistency. Appeared to benefit from increased knowledge of strategies to combat fear of failure and gaining self-awareness. Client will continue IOP tx to promote gains in reduced depressive symptoms and to reduce anxiety and avoidance. Narrative Note: []
== END 2024-07-22 23:59 ==
LOC: BHIOP 08:00
PROVIDERS: PCP Family Medicine; Referring Provider Psychiatry & Neurology Psychiatry; Visit Provider Psychiatry & Neurology Psychiatry
DX: F33.2 Major depressive disorder, recurrent severe without psychotic features (principal); F42.2 Mixed obsessional thoughts and acts; F41.1 Generalized anxiety disorder
CPT/HCPCS: S9480; 90832; 90853

== ENCOUNTER → 2024-07-19 | Outpatient (CLI) | payer BC, SELFPAY ==
[2024-07-19 16:53] LABS: Vitamin D,25 Hydroxy 38.2 ng/mL (30-100)
== END | disposition home or self-care (01) ==
LOC: LAB 13:03
PROVIDERS: PCP Family Medicine; Referring Provider Psychiatry & Neurology Psychiatry; Visit Provider Psychiatry & Neurology Psychiatry
DX: E55.9 Vitamin D deficiency, unspecified (principal)
CPT/HCPCS: 36415; 82306; 84443

== ENCOUNTER 2024-07-24 07:29 | Outpatient (RCR) | payer BC, SELFPAY ==
[2024-07-23 00:25] VITALS: BP 133/76; PULSE 87
--- NOTE | 2024-07-24 09:05 | BH.SGPN.GN ---
Behaviors/Verbalizations/Mental Status: [] Eye contact is good. Motor activity is appropriate. Appearance is casual. Speech is Appropriate. Mood is anxious. Affect is congruent. Thoughts are linear and logical. No evidence of psychosis. Reviewed daily check in sheet and no reports of suicidal ideations or intent. Client Response/Progress/Benefit: [] Pt was an active participant in group discussions. Attentive. Able to identify mental health wins and healthy habits. Utilizing healthy coping skills. He shared that he is practicing reframing and effective communication with his . He reports a recent disagreement which turned out to be a beneficial and productive discussion rather than a agreement which caused significant conflict. He has also begun journaling and making an effort towards behavioral activation such as exercise. He continues to report stressors and depression which impact him daily however some optimism regarding small changes he has made. Progress noted. Benefited from group support, encouragement, and feedback. Will continue in IOP to maintain safety, prevent decompensation, and improve functionoing. Narrative Note: []
--- NOTE | 2024-07-24 10:05 | BH.SGPN.GN ---
Behaviors/Verbalizations/Mental Status: []Pt alert and oriented, neatly dressed and groomed. Eye contact fair. Motor activity appropriate. Speech within normal limits. Affect congruent, mood anxious. Thoughts linear, logical, no signs of hallucinations or delusions. Client Response/Progress/Benefit: [] Pt participated in the group discussions AEB providing input, nodding and taking notes. Attentive during psychoeducation Goal Setting. Participated during the discussion on common barriers. Pt worked with group to identify common barriers to goal setting and pt reported fear of failure and self-doubt. Group also identified benefits of goals as sense of purpose, improved self-confidence, more motivation for other goals, sense of accomplishment, and improved mental health. Pt identified personal benefits to goal setting. Benefited from increased awareness of mental health benefits of goals as well as psychoeducation on SMART goal criteria. Will continue in IOP to prevent decompensation, gain healthy coping skills, and reduce avoidance. ? Narrative Note: []
--- NOTE | 2024-07-24 11:05 | BH.SGPN.GN ---
Behaviors/Verbalizations/Mental Status: [] Pt alert and oriented. Appearance is casual, hygiene is appropriate. Eye contact good. Motor activity appropriate. Speech within normal limits. Affect is anxious. Mood is constricted. Thoughts linear, logical, no signs of hallucinations or delusions. Client Response/Progress/Benefit: [] Pt was engaged during discussion and experiential activity. Completed the worksheet challenging them to develop a personal SMART goal. 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 Believes this goal will benefit them being through feeling more as though he is making progress in his carerr/increase sense of accomplishment. Identified obstacles such as motivation and fear of rejection .Benefited from this group by developing a short-term SMART goal related to mental health. Will continue IOP to prevent decompensation, stabilize mood, and improve functioning Narrative Note: []
--- NOTE | 2024-07-26 09:05 | BH.SGPN.GN ---
Behaviors/Verbalizations/Mental Status: [] Pt alert and oriented, neatly dressed and groomed. Eye contact good. Motor activity appropriate. Speech within normal limits. Affect congruent, mood calm. Thoughts linear, logical, no signs of hallucinations or delusions. Reviewed pt?s symptom tracker, no risk for suicidal ideation, plan, or intent 07/26/24. Client Response/Progress/Benefit: []Pt was an active participant in group discussions. Attentive. Able to identify mental health wins including ?I think my medication is really helping? and finishing some raised garden beds he was working on with his [id number]. ?Pt's stressor today is ?my is leaving for a few days and it?s hard to sleep without her.? The group offered pt encouragement and emotional support which pt reported was helpful. Pt is feeling calm? this morning. Pt receptive to feedback from peers which pt reported was helpful. Progress noted. Benefited from group support, encouragement, and feedback. Will continue IOP tx to prevent decompensation, improve daily functioning, and increase distress tolerance skills. Narrative Note: []
--- NOTE | 2024-07-26 09:05 | BH.SGPN.GN ---
Behaviors/Verbalizations/Mental Status: [] Pt alert and oriented, neatly dressed and groomed. Eye contact good. Motor activity appropriate. Speech within normal limits. Affect congruent, mood calm. Thoughts linear, logical, no signs of hallucinations or delusions. Reviewed pt?s symptom tracker, no risk for suicidal ideation, plan, or intent 07/26/24. Client Response/Progress/Benefit: []Pt was an active participant in group discussions. Attentive. Able to identify mental health wins including ?I think my medication is really helping? and finishing some raised garden beds he was working on with his [id number]. ?Pt's stressor today is ?my is leaving for a few days and it?s hard to sleep without her.? The group offered pt encouragement and emotional support which pt reported was helpful. Pt is feeling calm? this morning. Pt receptive to feedback from peers which pt reported was helpful. Progress noted. Benefited from group support, encouragement, and feedback. Will continue IOP tx to prevent decompensation, improve daily functioning, and increase distress tolerance skills. Narrative Note: []
--- NOTE | 2024-07-26 10:10 | BH.SGPN.GN ---
Behaviors/Verbalizations/Mental Status: []Eye contact is good. Motor activity is appropriate. Appearance is casual. Speech is Appropriate, quiet. Mood is anxious. Affect is congruent. Thoughts are linear and logical. No evidence of psychosis. Client Response/Progress/Benefit: []Pt was an active participant in group discussion. Engaged and attentive during psychoeducation and interactive discussion on coping skills, why people use unhealthy coping skills, how to replace unhealthy coping skills, and internal vs external coping skills. Attentive as peers came up with list of unhealthy coping skills. Pt reported personally, they tend to either shut down or avoid. Group discussed the effects of maladaptive coping skills on mental health. Benefited from increased understanding of unhealthy coping skills and the need for developing healthy internal and external coping skills. Actively participated during experiential group activity and was able to related this activity to group topic. Will continue in IOP to promote healthy thinking patterns, apply healthy coping skills, and promote mood stability. Narrative Note: []
--- NOTE | 2024-07-26 11:15 | BH.SGPN.GN ---
Behaviors/Verbalizations/Mental Status: [] Pt alert and oriented, casual in appearance. Eye contact good. Motor activity appropriate. Speech within normal limits. Affect congruent, mood euthymic. Thoughts linear, logical, no signs of hallucinations or delusions. Client Response/Progress/Benefit: [] Pt did not engage in group discussions however was attentive AEB taking notes, and listening attentively to others. Group discussed the different categories of coping skills which included distraction, emotional release, grounding, self-love, and thought challenging. Pt participated in creating a coping skills ?menu? from the different categories of coping skills. Pt's coping skill menu included: disc golf, exercise, sitting with uncomfortable, grounding, and self-care. Appeared to benefit from increasing repertoire of healthy coping skills. Will continue IOP to promote healthy coping, decrease anxious avoidance, and prevent decompensation.
--- NOTE | 2024-07-28 09:00 | BH.SGPN.GN ---
Behaviors/Verbalizations/Mental Status: [] Pt alert and oriented, neatly dressed and groomed. Eye contact good. Motor activity appropriate. Speech within normal limits. Affect congruent, mood euthymic. Thoughts linear, logical, no signs of hallucinations or delusions. Reviewed pt?s symptom tracker, no risk for suicidal ideation, plan, or intent 07/28/24. Client Response/Progress/Benefit: []Pt was an active participant in group discussions. Attentive. Able to identify mental health wins including using calming skills when he could not sleep and getting good sleep when he finally fell asleep. Pt's stressor today is ?it took me 2 hours to fall asleep last night, and I had to take my oh-shit meds.? Group normalized that this is why those types of medications exist. Pt is feeling anxious and calm? this morning. Pt receptive to feedback from peers which pt reported was helpful. Progress noted. Benefited from group support, encouragement, and feedback. Will continue IOP tx to increase distress tolerance skills, reduce compulsions, and improve daily functioning. ? Narrative Note: []
--- NOTE | 2024-07-28 10:00 | BH.SGPN.GN ---
Behaviors/Verbalizations/Mental Status: [] Eye contact is good. Motor activity is appropriate. Appearance is casual. Speech is Appropriate. Mood is anxious. Affect is congruent. Thoughts are linear and logical. No evidence of psychosis. Client Response/Progress/Benefit: [] Pt was engaged and participating throughout, providing input and taking notes. Attentive during psychoeducation on anxiety and cognitive triangle. Participated in an interactive discussion on defining anxiety and identifying cognitive and physiological symptoms of anxiety. The group discussed helpful vs harmful anxiety. Pt identified their physical/physiological signs of anxiety which includes:restlessness, muscle tensions, and sweating Benefited from increased awareness and insight on anxiety and its impact. Will continue in IOP to prevent decompensation, maintain safety, and increase healthy coping. Narrative Note: []
--- NOTE | 2024-07-28 15:04 | BH.MDN ---
Multi-Disciplinary Note Note 60-min Individual: Time Started:: 10:55 Date: 07/28/24 Purpose of session/treatment goals addressed:: To work on goal #2 of pt's tx plan by starting the Getting Over OCD workbook. Eye Contact:: Good Motor Activity:: Appropriate Appearance:: Neat Speech:: Soft Mood:: Anxious Affect:: Congruent Thoughts:: Linear, Logical and No evidence of hallucinations/delusions noted Staff Interventions:: psychoeducation on: (OCD and ERP), CBT techniques, mindfulness skills, strengths perspective, treatment planning, goal setting and other (identified pt's obsessions and compulsions using the Getting Over OCD Workbook. homework the read chapter from the overcoming unwanted intrusive thoughts book.) Client Response:: Pt responded well to session, open to meeting with therapist. Pt reports feeling somewhat anxious because his is out of town and he has difficulty with sleep, even more so when she is not around. Pt's issues with sleep worsened when pt experienced insomnia which then triggered intrusive thoughts about not being able to sleep. Pt stated some of his intrusive thoughts include I will sleep tonight or I won't sleep tonight, if I can't sleep I'll lose everything, sleep is the only way I'll function. Pt shared that he has a belief that if he does not sleep well for one night he will not be able to function at work or home which will result in him losing his job and his . Pt shared it sounds silly when I say it out loud but when I had insomnia I feel like I didn't function. Pt and therapist went over the different compulsions and pt identified the ones he feels he has. Pt's most used compulsions include; need for order, odd numbers, reassurance seeking from family, researching side effects, repeating phrases, and strict routines at night time. Pt also began to identify how much anxiety he would get if he was not able to engage in these compulsions. Pt struggled to identify any SUDs lower than a 6 as pt felt that most of his compulsions are pretty big and would cause a lot of anxiety (ROSALIE of 8/9) if he could not do them. Pt receptive to doing this as this will help pt begin working on his fear ladder to build distress tolerance skills. Reviewed calming skills pt can use as he works on distress tolerance. Pt also receptive to reading a chapter from overcoming unwanted intrusive thoughts book. Risks/Concerns:: Pt denies any active SI, plan, or intent as of 07/28/24. Progress Toward Goals/Plan:: Pt is making progress towards his tx goals AEB pt's consistent attendance, active engagement, and report of using healthy coping skills outside of IOP tx. Pt reports he has been feeling better than he was at admission which pt reports could be due to my meds leveling out. Pt reports being receptive to learning more about intrusive thoughts and how to better manage his OCD. Pt will work on homework noted above. Pt will continue IOP tx to promote mood stability, increase distress tolerance, and reduce use of compulsions. Time Stopped:: 12:00
--- NOTE | 2024-07-31 09:00 | BH.SGPN.GN ---
Behaviors/Verbalizations/Mental Status: [] ?Eye contact is good. Motor activity is appropriate. Appearance is casual. Speech is Appropriate. Mood is euthymic. Affect is congruent. Thoughts are linear and logical. No evidence of psychosis. Reviewed daily check in sheet and no reports of suicidal ideations or intent. Client Response/Progress/Benefit: [] ?Pt was an active participant in group discussions. Attentive. Did well to identify 2 mental health wins including not needing his prn anxiety med to sleep on Wednesday as he was able to use grounding skills effectively instead. Additional win noted as spending time helping his [id number] in the garden. Shared being outside was good for his mental health. Stressor noted as fear that the other shoe will drop as he struggles with accepting that he can be content and that does not mean something bad will happen. Progress noted. Benefited from group support, encouragement, and feedback. Will continue in IOP to prevent decompensation, promote mood stability, and increase healthy coping consistency. Narrative Note: []
--- NOTE | 2024-07-31 09:00 | BH.SGPN.GN ---
Behaviors/Verbalizations/Mental Status: [] ?Eye contact is good. Motor activity is appropriate. Appearance is casual. Speech is Appropriate. Mood is euthymic. Affect is congruent. Thoughts are linear and logical. No evidence of psychosis. Reviewed daily check in sheet and no reports of suicidal ideations or intent. Client Response/Progress/Benefit: [] ?Pt was an active participant in group discussions. Attentive. Did well to identify 2 mental health wins including not needing his prn anxiety med to sleep on Wednesday as he was able to use grounding skills effectively instead. Additional win noted as spending time helping his [id number] in the garden. Shared being outside was good for his mental health. Stressor noted as fear that the other shoe will drop as he struggles with accepting that he can be content and that does not mean something bad will happen. Progress noted. Benefited from group support, encouragement, and feedback. Will continue in IOP to prevent decompensation, promote mood stability, and increase healthy coping consistency. Narrative Note: []
--- NOTE | 2024-07-31 10:10 | BH.SGPN.GN ---
Behaviors/Verbalizations/Mental Status: [] Eye contact is good. Motor activity is appropriate. Appearance is casual. Speech is Appropriate. Mood is anxious. Affect is congruent. Thoughts are linear and logical. No evidence of psychosis. Client Response/Progress/Benefit: [] Pt was an active participant in group discussions. Attentive during psychoeducation on the 4 communication styles (Passive, Passive-Aggressive, Aggressive, and Assertive) and the obstacles to effective communication. Contributed during interactive discussion on the benefits of communicating effectively. Worked well with peers to identify the benefits and disadvantages to the different communication styles. Pt believes that he is mostly passive communicator and can recognize impact this has, but noted he has been improving this. Benefited from increased understanding of communication styles and how these can impact effective communication. Will continue in IOP to challenge distortions, decrease anxious avoidance, and prevent decompensation.
--- NOTE | 2024-07-31 11:00 | BH.SGPN.GN ---
Behaviors/Verbalizations/Mental Status: []Pt alert and oriented, casually dressed and groomed. Eye contact good. Motor activity appropriate. Speech within normal limits. Affect congruent, mood content. Thoughts linear, logical, no signs of hallucinations or delusions. Client Response/Progress/Benefit: [] Pt responded well to session AEB Pt listening attentively to others and providing input during group discussion on the pay offs and costs of the different communication styles. Pt able to connect how current communication style impacts mental health. Connected with peers? comments about the importance of using assertive communication. Pt seemed to benefit from increasing awareness of healthy strategies to improve communication and worked with peers during the experiential activity to practice assertive communication. Pt did well to ask clarifying questions during the activity. Will continue IOP tx to prevent decompensation, improve daily functioning, and increase distress tolerance. ? Narrative Note: []
--- NOTE | 2024-08-02 10:00 | BH.SGPN.GN ---
Behaviors/Verbalizations/Mental Status: []Client alert and oriented, casually dressed. Eye contact good. Motor activity appropriate. Speech within normal limits. Affect congruent, mood anxious. Thoughts linear, logical, no signs of hallucinations or delusions. Client Response/Progress/Benefit: [] Pt was an active participant AEB taking notes and engaging in group activity. Connected with the topic of pitfalls and listened to group discussion on barriers that prevent from choosing a healthier path to mental wellness. Group worked together to identify examples of personal pitfalls. These examples included; shutting down, not asking for help, negative thinking patterns, avoidance, and isolation. Pt benefited from group as Pt learned to better identify potential barriers to improving mental health symptoms. Identified personal barrier of negative self-talk and rumination. Pt will continue IOP tx to prevent decompensation, improve thought challenge skills, and increase self-confidence. Narrative Note: []
--- NOTE | 2024-08-02 11:05 | BH.SGPN.GN ---
Behaviors/Verbalizations/Mental Status: []Client alert and oriented, casually dressed and groomed. Eye contact good. Motor activity appropriate. Speech within normal limits. Affect congruent, mood content and euthymic. Thoughts linear, logical, no signs of hallucinations or delusions. Client Response/Progress/Benefit: [] Pt receptive of session, engaged throughout AEB Pt actively listening and contributing to discussion as well as taking notes.? Pt participated in the experiential activity and did well to communicate ideas with peers and manage emotions. Pt attentive as group processed how the emotions and perspective of the group impacted the activity. Pt was highly encouraging during the activity which helped peers. Group worked together to identify different coping skills to help manage pitfalls. Pt identified a pitfalls they struggle with as catastrophizing, being too reliant on others, and engaging in his compulsions . Pt plans to work on their pitfall by ?using self-reflection techniques and opposite action.? Benefited from identifying personal pitfalls and strategies to overcome these pitfalls. Pt will continue IOP tx to promote mood stability, increase distress tolerance skills, and improve daily functioning. Narrative Note: []
--- NOTE | 2024-08-02 15:08 | BH.MDN_ITS ---
Multi-Disciplinary Note Note 30-min Individual: Time Started:: 09:20 Date: 08/02/24 Purpose of session/treatment goals addressed:: To work on goal #2 of pt's tx plan by beginning steps for ERP. Eye Contact:: Good Motor Activity:: Appropriate Appearance:: Neat Speech:: Appropriate Mood:: Euthymic and Anxious Affect:: Congruent Thoughts:: Linear, Logical and No evidence of hallucinations/delusions noted Staff Interventions:: thought challenging, CBT techniques, mindfulness skills, strengths perspective and other (began working on pt's fear ladder and pt would like to work more on it at home.) Client Response:: Pt responded well to session, open to meeting with therapist. Pt reported he is concerned about his constipation and would like to see the [facility] psychiatrist this week. See Dr. Aguilar note for more information on medication adjustment plan. Pt shared that he still feels the Prozac is helpful with reducing the intensity of his anxiety. Pt still feels that his intrusive thoughts and compulsions about sleep are hindering his daily functioning. Pt reports he is getting better with managing this, but anytime there is a change (his is gone, he has to go somewhere, etc) pt's anxiety exacerbates. Pt and therapist reviewed ERP and introduced the fear ladder. Pt and therapist reviewed an example one and therapist gave pt education on how to set these goals. Discussed barriers and benefits. Pt would like time to come up with his fear ladder goals and asked to fill this out for homework. Risks/Concerns:: Pt denies any suicidal ideations, plan, or intent. Pt denies any thoughts of . Progress Toward Goals/Plan:: Pt continues to make progress towards his tx goals AEB pt's self-report of improvement from the medication change. However, pt is reporting some constipation issues from a medication he is weaning and would like to be seen by psychiatry this week. Pt is still engaging in compulsions and he has ongoing intrusive thoughts that he would like to decrease. Pt receptive to working on his fear ladder for homework. Pt will continue IOP tx to prevent decompensation, gain distress tolerance skills, and improve daily functioning. Time Stopped:: 09:40
--- NOTE | 2024-08-04 09:05 | BH.SGPN.GN ---
Behaviors/Verbalizations/Mental Status: [] Eye contact is good. Motor activity is appropriate. Appearance is casual. Speech is Appropriate. Mood is anxious. Affect is congruent. Thoughts are linear and logical. No evidence of psychosis. Reviewed daily check in sheet and no reports of suicidal ideations or intent Client Response/Progress/Benefit: [] Pt participated at times during the group discussion. Attentive. Daily symptom tracker notes 2/5 for anxiety and 1/5 for depression. Able to identify mental health wins and healthy habits. He shared changes that he has made over the past week which had helped his mental health.? ? Feeling pretty good overall?. ? A lot better since starting (IOP)?. Less depression. Feeling ?stressed and calm? today. Progress noted. Benefited from group support, encouragement, and feedback. Narrative Note: []
--- NOTE | 2024-08-04 10:15 | BH.SGPN.GN ---
Behaviors/Verbalizations/Mental Status: [] Pt alert and oriented, casually dressed and groomed. Eye contact good. Motor activity appropriate. Speech within normal limits. Affect congruent, mood anxious and euthymic. Thoughts linear, logical, no signs of hallucinations or delusions. Client Response/Progress/Benefit: [] Client receptive of session, actively engaged throughout AEB taking notes and providing input and examples to discussion. Appeared to connect with group topic of cognitive distortions and the impact of thought patterns on mental health, coping behaviors, and relationships. Client appeared to benefit from gaining insight on distorted thinking patterns and how this impacts overall mental health. Reports struggling with personalization and mind reading. Will continue IOP tx to increase overall functioning, prevent decompensation, and improve mood stability. Narrative Note: []
--- NOTE | 2024-08-04 11:15 | BH.SGPN.GN ---
Behaviors/Verbalizations/Mental Status: [] Pt alert and oriented, casually dressed and groomed. Eye contact good. Motor activity appropriate. Speech within normal limits. Affect congruent, mood anxious and euthymic. Thoughts linear, logical, no signs of hallucinations or delusions. Client Response/Progress/Benefit: [] Client responded well to session AEB input and examples during group activity. Group discussed and practiced methods of reframing cognitive distortions. Client participated in identifying cognitive distortions when examples were provided. Client discussed in group the different strategies to overcome the distortions. Client identified connecting with the concept that thoughts are not facts. Will continue tx to improve anxiety management, coping skill application and prevent decompensation. Narrative Note: []
--- NOTE | 2024-08-04 12:09 | PCM.BH.PN ---
Charges/Coding Behavior Health Behavior Health EST Pt E/M: 00167 Est Pt Level II Intake Vital Signs 07/19/24 11:07 07/23/24 00:25 08/04/24 12:42 Height 1.88 m 1.88 m Weight: 86.183 kg 86.183 kg BP 133/76 H 133/76 H Pulse 87 87 Intake Visit Reasons: Follow-up for MDD and OCD Allergies No Known Allergies Allergy (Verified 07/19/24 10:55) Medications ?Medication ?Instructions ?Recorded ?Confirmed ?Type magnesium oxide 400 mg (241.3 mg 400 mg PO QHS 02/12/24 07/19/24 History magnesium) tablet trazodone 50 mg tablet 50 mg PO QHS PRN sleep #7 tabs 02/12/24 07/19/24 Rx clomipramine 75 mg capsule 150 mg PO DAILY 07/19/24 07/19/24 History fluoxetine 10 mg capsule (Prozac) 10 mg PO DAILY 30 days #30 caps 07/19/24 Rx hydroxyzine pamoate 50 mg capsule 50 mg PO BID PRN anxiety 07/19/24 07/19/24 History PFSH () Medical History (Updated 08/04/24 @ 13:[address] Radha Damon MD) Generalized anxiety disorder Major depressive disorder, recurrent severe without psychotic features OCD (obsessive compulsive disorder) Surgical History Hx of appendectomy Social History Smoking Status: Never smoker Exam Mental Status Exam- Psych () Appearance casually dressed, adequately groomed and no apparent distress Attitude cooperative and calm Activity/Motor Behavior appropriate eye contact Speech regular rate and regular volume Mood euythmic Affect other (Slightly reserved but appropriate range) Thought Process linear and loose associations Thought Content no delusions and no hallucinations Suicidal Ideation none Homicidal Ideation none Attention intact Concentration intact Sensorium/Orientation awake and alert Memory/Cognition intact Insight good Judgement good Exam () Narrative Exam Narrative: -Current psychiatric medications: Clomipramine 75 mg daily, trazodone 50 mg daily, hydroxyzine 50 mg as needed, Prozac 20 mg -SUBJECTVE: Mood is overall good, still has some OCD-like behaviors but feels these are manageable and much better overall. Sleeping fair with the trazodone and has not required hydroxyzine more than once in the past 2 weeks. No SI/HI Medications: Patient is tolerating the cross titration well with some improvement in constipation, anticipate as clomipramine is decreased constipation will improve, is tolerating Prozac 20 mg without side effects Assessment & Plan () Assessment & Plan (1) Major depressive disorder, recurrent severe without psychotic features: Problem Details: Patient reports overall mood is good, sleeping fairly well with his trazodone and is only required hydroxyzine once in the past 2 weeks. He is currently on a cross titration to increase Prozac and discontinue clomipramine and is tolerating this well, he denies any suicidal thoughts or intent Plan: Patient presently on Prozac 20 for the past week and clomipramine 75 mg, this is being cross titrated by his outpatient provider with goal to further uptitrate Prozac and get off clomipramine altogether. As this is actively being done by his outpatient provider will defer further titration to them however certainly do agree with this plan of action. Patient tolerating this well, reports he is still having some constipation but possibly improving with decreasing clomipramine, discussed that if this does not significantly improve with clomipramine discontinued that he may need to discuss with his primary care physician, he verbalizes understanding. Patient's labs reviewed, vitamin D and thyroid are within normal limits (2) OCD (obsessive compulsive disorder): Problem Details: Distal fail he has some OCD-like behaviors but they are now more manageable and overall feels he is doing well Plan: Continue cross titration as above, continue to participate in IOP
--- NOTE | 2024-08-04 12:42 | BH.DR.ITP ---
Initial Treatment Plan Patient Information Visit Information: ADMISSION DATE: EXPECTED LOS: 4-6 weeks
--- NOTE | 2024-08-04 12:42 | BH.DR.ITP ---
Initial Treatment Plan Patient Information Visit Information: ADMISSION DATE: EXPECTED LOS: 4-6 weeks
--- NOTE | 2024-08-04 12:53 | BH.DR.ITP ---
Initial Treatment Plan Patient Information Visit Information: ADMISSION DATE: EXPECTED LOS: 4-6 weeks Diagnoses:: MDD, OCD Problems/Symptoms Problem #1:: MDD Symptom:: Improving, sleep improving, mood improving, no further SI Problem #2:: OCD Symptom:: Improving anxiety and intrusive thoughts
--- NOTE | 2024-08-07 09:00 | BH.SGPN.GN ---
Behaviors/Verbalizations/Mental Status: [] Client alert and oriented, casual appearance. Eye contact good. Motor activity appropriate. Speech within normal limits. Affect congruent, mood content. Thoughts linear, logical, no signs of hallucinations or delusions. Reviewed client's symptom tracker, no risk for suicidal ideation, plan, or intent. Client Response/Progress/Benefit: [] Client responded well to session AEB listening to others and sharing thoughts/feelings. Client reported mental positive was being able to use grounding skills when struggling to sleep last night. Shared that he did not have to rely on medications which he felt proud of as well. Additional win noted as spending time with his family for father's day and not isolating. Stressor identified as an upcoming work trip in which he would have to travel to [place]. Shared trying to look at the positive side of things and make is a get away date weekend for he and his . Appeared to benefit from support from peers. Will continue IOP tx to reinforce healthy coping skills, challenge distortions, and prevent decompensation. Narrative Note: []
--- NOTE | 2024-08-07 10:10 | BH.SGPN.GN ---
Behaviors/Verbalizations/Mental Status: [] Eye contact is good. Motor activity is appropriate. Appearance is casual. Speech is Appropriate. Mood is anxious and euthymic. Affect is congruent. Thoughts are linear and logical. No evidence of psychosis. Client Response/Progress/Benefit: [] Pt receptive to session AEB contributing to group discussion, as well as listening attentively to others, and taking notes. Worked with group to brainstorm the positive and negative aspects of stress on physical and mental health as well as the impact of distress on performance, relationships, and mental health. Pt shared top stressors to be: lack of sleep, marriage, fiances, and work. Shared when feeling overwhelmed with stress they tend to manifest depression, avoid, and engage in OCD behaviors. Benefited from increased awareness of positive and negative stress as well as how stress impact individuals. Will continue in IOP to improve distress tolerance, improve view of self, and increase overall functioning. Narrative Note: []
--- NOTE | 2024-08-07 11:10 | BH.SGPN.GN ---
Behaviors/Verbalizations/Mental Status: [] Eye contact is good. Motor activity is appropriate. Appearance is casual. Speech is Appropriate. Mood is euthymic. Affect is congruent. Thoughts are linear and logical. No evidence of psychosis. Client Response/Progress/Benefit: [] Pt was an attentive participant in group discussions and actively engaged during experiential activity, doing well to regulate their emotions throughout the activity and work with peers. Attentive during psychoeducation on the 4 A's (Avoid, adapt, alter, accept) of coping with stress. Shared that they would benefit most from accepting approach to lack of sleep by letting self know its okay and can't get good sleep every night. Was able to identify the connection between the experiential activity and utilization of stress management skills. Benefited from increased awareness of stress management strategies. Pt will continue IOP to increase consistent use of healthy coping skills, challenge negative thoughts, and increase overall functioning. Narrative Note: []
--- NOTE | 2024-08-08 12:54 | BH.TPR ---
Treatment Plan Review Demographics Date of Admission:: 07/19/24 Date of Treatment Plan Review:: 08/08/24 Admitting Diagnoses:: Major depressive disorder, recurrent, severe without psychosis (F33.2); OCD (F42.2); Generalized anxiety disorder Current Diagnoses:: Major depressive disorder, recurrent, severe without psychosis (F33.2); OCD (F42.2); Generalized anxiety disorder Patient Status Patient's Response to Treatment:: Pt has responded well to session AEB consistently attending IOP and engaging in both individual and group therapy sessions. Pt consistently completes homework provided from individual counseling. Pt contributes actively during group discussions, takes notes, appears to listen to others, and engages in group activities. Pt's overall DSM-5 scores have decreased by 17% since admission. Pt's depression has decreased by 25% since admission, anxiety has decreased by 25%, and pt reports feeling less driven to engage in compulsions. Status of Current Problems and Symptoms: Pt's symptoms of OCD are ongoing, but his functioning is improving. Pt reports he still has obsessions daily and he is still engaging in some compulsions. Pt still ruminates excessively about sleep at night, but pt is working on not engaging in his compulsions. Pt has been receptive to ERP and learning how to not respond to intrusive thoughts. Pt still feels depressed several days a week and pt is having some side effects from his medication that he would like to address. Progress Problem #1: Problem Name:: Depression Status of Goals:: Objective 1-in progress. Pt?s DSM-5 scores have decreased by 25% since admission. Pt reports benefitting from getting back into disc golf and using opposite action. Pt will continue working on implementing healthy coping skills. Objective 2- in progress. Pt is working on catching himself when he has negative thought patterns and being more non-judgmental with himself. Team Recommendations:: Team recommends continued goals and objectives to reinforce skills and reduce symptoms. Team recommends pt continue working on combating distortions, engaging in self-care practices, and working on exposure goals to gain confidence. Problem #2: Problem Name:: OCD and anxiety Status of Goals:: Objective 1-in progress. Pt?s DSM-5 scores are the same since admission for OCD, however, pt is actively working on a fear ladder and this can temporarily increase anxiety before it reduces. Pt's general anxiety score has decreased by 25%. Pt reports utilizing calming skills, ERP, and rapp mind. Objective 2- in progress. Pt is working on his fear ladder and has begun small exposure goals. Pt will work his way up to more anxiety producing goals and not engaging in compulsions. Team Recommendations:: Treatment team encourages pt to continue working on distress tolerance skills, repeating exposure goals, and not engaging in compulsions.
--- NOTE | 2024-08-09 09:00 | BH.SGPN.GN ---
Behaviors/Verbalizations/Mental Status: [] Client alert and oriented, casual appearance. Eye contact good. Motor activity appropriate. Speech within normal limits. Affect congruent, mood anxious. Thoughts linear, logical, no signs of hallucinations or delusions. Reviewed client's symptom tracker, no risk for suicidal ideation, plan, or intent. Client Response/Progress/Benefit: [] Client responded well to session AEB listening to others and sharing thoughts/feelings. Client reported mental positive as being able to utilize grounding and breathing tools yesterday to get himself out of a panic attack. Client noted additional mental positive as playing in a [employer] golf tournament yesterday. Client noted continued stressor as worried about his cousins decompensating mental health. Client stated he does plan to visit his cousin when client goes on his business trip to [place] coming up. Appeared to benefit from support from peers. Will continue IOP tx to continue utilizing healthy calming skills to manage anxiety, challenge negative thoughts, and prevent decompensation. Narrative Note: []
--- NOTE | 2024-08-09 10:00 | BH.SGPN.GN ---
Behaviors/Verbalizations/Mental Status: []Pt alert and oriented, neatly dressed and groomed. Eye contact good. Motor activity appropriate. Speech within normal limits. Affect congruent, mood euthymic. Thoughts linear, logical, no signs of hallucinations or delusions. Client Response/Progress/Benefit: [] Pt was an active participant in group discussion and experiential activity. Attentive during psychoeducation on resilience and provided input throughout. Participated in interactive discussion with peers on the definition of resilience and where it comes from. Group identified that resiliency can be impacted by; past experiences, upbringing, and personality traits. Able to relate experiential activity of group juggle to topics of resilience. Worked with peers in small group in which they identified factors that contribute to resilience and did well providing ideas. Benefited from increased awareness of resilience and the factors that contribute to building resilience. Will continue in IOP tx to reduce compulsions, increase distress tolerance skills, and improve mood stability. ? Narrative Note: []
--- NOTE | 2024-08-09 11:00 | BH.SGPN.GN ---
Behaviors/Verbalizations/Mental Status: [] Eye contact is good. Motor activity is appropriate. Appearance is casual. Speech is Appropriate. Mood is anxious. Affect is congruent. Thoughts are linear and logical. No evidence of psychosis. Client Response/Progress/Benefit: [] Pt responded well to session AEB completing the resilience worksheet provided. Pt actively participated in the discussion and worked cooperatively with group to identify strategies to enhance each of the components discussed. Pt reports belief they already use resilience trait of ?moving towards goals and maintaining hopeful outlook.? Pt was able to identify areas related to resilience to focus on in the future. Pt seemed to benefit from discussing strategies for improving personal resilience and identifying resilience traits Pt already possesses. Will continue IOP tx to maintain safety, prevent decompensation, increase healthy coping, and improve functioning. Narrative Note: []
--- NOTE | 2024-08-11 09:00 | BH.SGPN.GN ---
Behaviors/Verbalizations/Mental Status: []Pt alert and oriented, neatly dressed and groomed. Eye contact good. Motor activity appropriate. Speech within normal limits. Affect congruent, mood hopeful. Thoughts linear, logical, no signs of hallucinations or delusions. Reviewed pt?s symptom tracker, no risk for suicidal ideation, plan, or intent 08/11/24. Client Response/Progress/Benefit: [] Pt was an active participant in group discussions. Attentive. 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 Pt's stressor today is ?I?m still worrying about my cousin and his mental health.? The group offered pt encouragement and emotional support which pt reported was helpful. Pt is feeling happy this morning. Pt receptive to feedback from peers. Progress noted. Benefited from group support, encouragement, and feedback. Will continue IOP tx to increase distress tolerance skills, reduce compulsions, and improve daily functioning. Narrative Note: []
--- NOTE | 2024-08-11 10:10 | BH.SGPN.GN ---
Behaviors/Verbalizations/Mental Status:?[] Client alert and oriented, casually dressed and groomed. Eye contact good. Motor activity appropriate. Speech within normal limits. Affect congruent, mood anxious, euthymic. Thoughts linear, logical, no signs of hallucinations or delusions. Client Response/Progress/Benefit:?[] Pt engaged in session AEB client listening attentively to peers and providing input. Attentive and contributed to discussion as group worked on defining?self-confidence?and identifying benefits of?self-confidence, as well as factors that can effect?self-confidence?levels. Pt was an active participant in activity in which the group read and processed each right on the Personal Bill of Rights worksheet. Pt identified the rights they struggle with believing. Benefited from increased education on?self-confidence?and what effects it. Pt will continue IOP tx to improve distress tolerance, continue working on anxious exposure goals, and prevent decompensation.
--- NOTE | 2024-08-11 14:38 | BH.MDN_ITS ---
Multi-Disciplinary Note Note 30-min Individual: Time Started:: 11:20 Date: 08/11/24 Purpose of session/treatment goals addressed:: To process a current stressor impacting pt's mood and to continue working on goal #2 of pt's tx plan. Eye Contact:: Good Motor Activity:: Appropriate Appearance:: Neat Speech:: Appropriate Mood:: Euthymic and Anxious Affect:: Congruent Thoughts:: Linear, Logical and No evidence of hallucinations/delusions noted Staff Interventions:: CBT techniques, mindfulness skills, strengths perspective, goal setting, taught coping skills (taught pt tips to help ERP which included; intention, prolonged, and repeated. ) and other (reviewed homework (chapter 3 of the overcoming unwanted intrusive thoughts book and creating his fear ladder)) Client Response:: Pt responded well to session, open to meeting with therapist. Pt reports he is doing well overall, he feels happier and he noted that the homework from last week was very helpful. Pt was referring to the chapter from the Overcoming Unwanted Intrusive Thoughts book that talked about myths about thoughts. Pt shared he has been using the examples and tips from that book to not fight against my thoughts but let them be there which has helped pt not ruminate as much. Pt stated he also completed the fear ladder and identified his first step, which is to listen to music that talks about sleep for at least 10 minutes a day. Pt and therapist reviewed things that help make ERP successful and what could hinder progress with ERP. Pt reminded to engage in grounding skills while practicing ERP but not to try to numb his emotions. Pt also wanted to process something that has been stressful to pt- his cousin's mental health. Pt verbalized some of his concerns and asked for advice on how to approach this. Therapist offered ideas on providing emotional support without pushing an agenda and how to build discrepancy without judgment. Risks/Concerns:: Pt denies any suicidal ideations, plan, or intent. Pt denies any thoughts of . Progress Toward Goals/Plan:: Pt continues to make progress towards his tx goals AEB pt's consistent attendance and completion of individual june ework/goals. Pt reports overall he is happier and the medication is working. However, pt still feels like his intrusive thoughts and compulsions consume too much of his life. Pt is receptive to working on his first goal from his fear ladder. Pt also understands the tips for making the most out of exposure therapy. Pt will continue IOp tx to promote mood stability, increase distress tolerance, and improve daily functioning. Time Stopped:: 11:55
--- NOTE | 2024-08-14 09:00 | BH.SGPN.GN ---
Behaviors/Verbalizations/Mental Status: [] Client alert and oriented, casual appearance. Eye contact good. Motor activity appropriate. Speech within normal limits. Affect congruent, mood euthymic. Thoughts linear, logical, no signs of hallucinations or delusions. Reviewed client's symptom tracker, no risk for suicidal ideation, plan, or intent. Client Response/Progress/Benefit: [] Client responded well to session AEB listening to others and sharing thoughts/feelings. Client reported mental positive as went to the movies over the weekend and had a good time. Client stated additional months of positive as being able to recover intake accountability for his support during an argument with his . Client noted positive change with being able to manage the conflict quicker than compared to the past. Client noted current stressor as work because it is a very busy time. Appeared to benefit from support from peers. Will continue IOP tx to continue decreasing anxiety safety behaviors, challenge distortions, and prevent decompensation. Narrative Note: []
--- NOTE | 2024-08-14 10:10 | BH.SGPN.GN ---
Behaviors/Verbalizations/Mental Status: [] Eye contact is good. Motor activity is appropriate. Appearance is casual. Speech is Appropriate. Mood is anxious. Affect is congruent. Thoughts are linear and logical. No evidence of psychosis. Reviewed daily check in sheet and no reports of suicidal ideations or intent. Client Response/Progress/Benefit: [] Client responded well to session, contributing to discussion and engaged during the activity. Attentive during discussion on the quote and psychoeducation. Group identified the benefits of change as well as common emotions associated with change. Group choose five emotions associated with change (lonely, exhausted, confident, fearful,and overwhelmed) and discussed how these emotions can be both positive (motivate one to change) and also be an obstacle to change. Benefited from increased awareness and understanding of emotions, benefits, and barriers related to change. Will continue IOP tx to prevent decompensation, increase healthy coping, stabilize anxiety, maintain safety, and improve functioning. Narrative Note: []
--- NOTE | 2024-08-14 11:10 | BH.SGPN.GN ---
Behaviors/Verbalizations/Mental Status: []Client alert and oriented, casually dressed and groomed. Eye contact good. Motor activity appropriate. Speech within normal limits. Affect congruent, mood euthymic. Thoughts linear, logical, no signs of hallucinations or delusions. Client Response/Progress/Benefit: [] Pt responded well to session, attentive. Did well to process activity and work with group to relate the strategies used to overcome barriers in the activity to managing change in own life. Pt identified a change would like to make is stop acting on his compulsions. Pt stated currently in action. Reported he is working on ERP by listening to songs about sleep and not engaging in his compulsions. Appeared to benefit from identifying a small goal to work towards. Pt will continue IOP tx to promote use of healthy coping skills, increase distress tolerance skills, and reduce compulsions. Narrative Note: []
--- NOTE | 2024-08-16 09:05 | BH.SGPN.GN ---
Behaviors/Verbalizations/Mental Status: [] Eye contact is good. Motor activity is appropriate. Appearance is casual. Speech is Appropriate. Mood is anxious. Affect is congruent. Thoughts are linear and logical. No evidence of psychosis. Reviewed daily check in sheet and no reports of suicidal ideations or intent. Client Response/Progress/Benefit: [] Pt participated when prompted. Attentive. Daily symptom tracker notes 04/26 for anxiety. He shared recent event and thoughts which resulted in significant worry and anxiety. Reports being on the verge of a panic attacks however was able to utilize healthy skills such as mindfulness and thought-reframing. These skills helped decrease anxiety and prevent anxiety attack. Increased confidence in his ability to manage emotions. Progress noted. Benefited from group support, encouragement, and feedback. Will continue in IOP to prevent decompensation, maintain safety, and increase healthy coping. Narrative Note: []
--- NOTE | 2024-08-16 10:10 | BH.SGPN.GN ---
Behaviors/Verbalizations/Mental Status: [] Eye contact is good. Motor activity is appropriate. Appearance is casual. Speech is Appropriate. Mood is anxious. Affect is congruent. Thoughts are linear and logical. No evidence of psychosis. Client Response/Progress/Benefit: [] Pt engaged in session AEB listening attentively to others and providing input throughout. Pt engaged in activity, able to connect how it can be uncomfortable and difficult to practice acceptance when situations are out of one?s own control. Identified he is struggling with accepting that things won't work out 100% of the time. Worked with peer group to define acceptance and identify the benefits that acceptance can bring. Benefits included; reduce stuckness, reduced stress, helps one to focus on situations we can change, and decreased negative self-talk. Seemed to benefit from increased awareness of the meaning as well as the importance of acceptance. Will continue in IOP to prevent decompensation, decrease anxious avoidance, and challenge distortions.
--- NOTE | 2024-08-16 11:15 | BH.SGPN.GN ---
Behaviors/Verbalizations/Mental Status: []Pt alert and oriented, casually dressed and groomed. Eye contact good. Motor activity appropriate. Speech within normal limits. Affect congruent, mood anxious. Thoughts linear, logical, no signs of hallucinations or delusions. Client Response/Progress/Benefit: [] Pt responded well to session AEB taking notes and contributing to discussion throughout. Pt engaged as group continued discussion on acceptance and the mental health benefits of practicing acceptance. Pt and peers identified what makes acceptance challenging and pt completed a self-reflection exercise on what is hard to accept in pt's life. Pt identified something that is currently hard to accept that things wont be 100% like they were before. Client stated by not accepting this it leads to anxiety, negative self-talk, and guilt. Group identified strategies to increase acceptance. Pt noted wanting to work on asking for help as a strategy for improving acceptance in this area. Pt appeared to benefit from gaining insight and learning strategies to increase acceptance. Pt will continue IOP tx to improve insight, increase mood stability, and prevent decompensation. Narrative Note: []
--- NOTE | 2024-08-18 09:05 | BH.SGPN.GN ---
Behaviors/Verbalizations/Mental Status: [] Eye contact is good. Motor activity is appropriate. Appearance is casual. Speech is Appropriate. Mood is anxious. Affect is congruent. Thoughts are linear and logical. No evidence of psychosis. Reviewed daily check in sheet and no reports of suicidal ideations or intent. Client Response/Progress/Benefit: [] Pt participated at times during the group discussion. Attentive. Daily symptom tracker notes 03/29 for anxiety. Shared with the group anxiety related to an upcoming trip out of town. States he has been ?stressed out? yesterday. Was able to incorporate calming and grounding skills which was beneficial. Progress noted as pt has been practicing and implementing skills on a consistent basis with benefits. Benefited from group support, encouragement, and feedback. Will continue in IOP to prevent decompensation, stabilize anxiety, and maintain safety Narrative Note: []
--- NOTE | 2024-08-18 10:10 | BH.SGPN.GN ---
Behaviors/Verbalizations/Mental Status: [] Eye contact is good. Motor activity is appropriate. Appearance is casual. Speech is Appropriate. Mood is euthymic. Affect is congruent. Thoughts are linear and logical. No evidence of psychosis. Client Response/Progress/Benefit: [] Pt semi engaged participant AEB listening to others, engaging in activity, and providing feedback at times. Attentive during psychoeducation that provided insight into obstacles that impede mental wellness. Pt shared with group current mental health reality and desired mental health reality. Identified barriers to desired reality include: Fear of failure, lack of motivation, and wanting to stay in the comfort setting. Benefited from taking look at current mental health state and obstacles for progress. Pt to continue IOP tx to decrease anxious avoidance, challenge negative thoughts, and prevent decompensation.
--- NOTE | 2024-08-18 11:10 | BH.SGPN.GN ---
Behaviors/Verbalizations/Mental Status: [] Eye contact is good. Motor activity is appropriate. Appearance is casual. Speech is Appropriate. Mood is euthymic and anxious. Affect is congruent. Thoughts are linear and logical. No evidence of psychosis. Client Response/Progress/Benefit: [] Pt was an engaged participant in group discussion and activity. Worked with group to identify strategies to help overcome barriers and obstacles to desired reality. Group developed strategies for the common barriers. Identified personal barriers to desired reality and choose one obstacle to work on. Pt stated wanting to work on barrier of fear of something bad happening by practicing sitting with the uncomfortable. Pt seemed to benefit from increased repertoire of healthy coping skills/strategies to overcome common barriers to moving forward. Pt is to continue IOP increase functioning, challenge distortions and intrusive thoughts, and prevent decompensation. Narrative Note: []
== END 2024-08-21 23:59 ==
LOC: BHIOP 07:29
PROVIDERS: PCP Family Medicine; Referring Provider Psychiatry & Neurology Psychiatry; Visit Provider Psychiatry & Neurology Psychiatry
DX: F33.2 Major depressive disorder, recurrent severe without psychotic features (principal); F42.2 Mixed obsessional thoughts and acts; F41.1 Generalized anxiety disorder
CPT/HCPCS: S9480; 90832; 90837; 90853

== ENCOUNTER 2024-08-22 07:15 | Outpatient (RCR) | payer BC, SELFPAY ==
--- NOTE | 2024-08-22 09:00 | BH.SGPN.GN ---
Behaviors/Verbalizations/Mental Status: [] ?Eye contact is good. Motor activity is appropriate. Appearance is casual. Speech is Appropriate. Mood is content, anxious. Affect is congruent. Thoughts are linear and logical. No evidence of psychosis. Reviewed daily check in sheet and no reports of suicidal ideations or intent. Client Response/Progress/Benefit: [] ?Pt was an active participant in group discussions. Attentive. Did well to identify 2 mental health wins including managing to sleep through the night without issues, as well as having a successful trip to [place]. Described visiting with a friend downtown and doing well to enjoy himself rather than ruminate on his stressors. Current stressor noted as several upcoming work projects. Reports trying to focus on one thing at a time and note the entire list at once. Progress noted. Benefited from group support, encouragement, and feedback. Will continue in IOP to prevent decompensation, promote mood stability, and increase healthy coping consistency. Narrative Note: []
--- NOTE | 2024-08-22 10:10 | BH.SGPN.GN ---
Behaviors/Verbalizations/Mental Status: []Pt alert and oriented, casually dressed and groomed. Eye contact good. Motor activity appropriate. Speech within normal limits. Affect congruent, mood content, calm. Thoughts linear, logical, no signs of hallucinations or delusions. Client Response/Progress/Benefit: [] Pt an active participant in group discussions on defining conflict (internal/external) and possible benefits to conflict. Attentive during psychoeducation on conflict styles (avoidant, accommodating, competing, cooperative) and engaged during group discussion in which peers identified the benefits and consequences to each conflict style. Pt identified that he tends to be both competing and cooperative when it comes to conflict. Benefited from increased awareness of the impact of conflict styles in mental health. Will continue in IOP tx to increase distress tolerance, improve self-confidence, and reduce compulsions. Narrative Note: []
--- NOTE | 2024-08-22 15:37 | BH.MDN_ITS ---
Multi-Disciplinary Note Note 45-min Individual: Time Started:: 11:15 Date: 08/22/24 Purpose of session/treatment goals addressed:: To work on goal #2 of pt's tx plan by engaging in in-vivo exposure using ERP techniques. Eye Contact:: Good Motor Activity:: Appropriate Appearance:: Neat Speech:: Appropriate Mood:: Euthymic and Anxious Affect:: Congruent Thoughts:: Linear, Logical, Other (reporting some intrusive thoughts during ERP) and No evidence of hallucinations/delusions noted Staff Interventions:: CBT techniques, discharge planning, strengths perspective and other (Did in-vivo exposure for approximately 20 mins and processed. Set ERP homework goals for the week.) Client Response:: Pt responded well to session, open to meeting with therapist. Pt reports feeling like he is progressing well. Pt has been engaging in his ERP goals of listening to songs about sleep and he reports his SUDs are less than expected, but he is still engaging in some compulsions. Pt reports the most difficult compulsion to not do is getting in and out of bed three times at night. Pt reports he is no longer checking the doors at night and he is able to turn his light off before his now. Pt is receptive to working on his ERP in session-listening to songs about sleep. Pt will also practice saying I will not sleep tonight because I'm listening to this. Pt understands that this technique is used in the exposure part of ERP as pt's OCD anxiety must be active during ERP for it to be most effective. Pt listened to music for about 20 minutes with therapist and throughout did check-ins. Pt's SUDs got to a 5 and he stated that this is still manageable. Pt reported it will be hard for him to not go home and engage in his compulsions, but pt understands that this will help him long-term. Discussed next steps in ERP goals which is to watch things that have characters that cannot sleep. Pt stated one movie he used to love, but has been avoiding is [employer] due to the main character having insomnia. Pt and therapist will watch some of this next session for his ERP goal. Risks/Concerns:: Pt denies any suicidal ideations, plan, or intent. Pt denies any thoughts of . Progress Toward Goals/Plan:: Pt continues to do well in tx AEB pt's self- report of improving functioning with his OCD and his ability to manage distress. Pt is working on not engaging in compulsions while working on his exposure goals. Pt will continue IOP tx for two more weeks as pt is still struggling with engaging in compulsions at night and can benefit from more ERP work. Time Stopped:: 12:00
--- NOTE | 2024-08-24 09:05 | BH.SGPN.GN ---
Behaviors/Verbalizations/Mental Status: [] Eye contact is good. Motor activity is appropriate. Appearance is casual. Speech is Appropriate. Mood is anxious. Affect is congruent. Thoughts are linear and logical. No evidence of psychosis. Reviewed daily check in sheet and no reports of suicidal ideations or intent. Client Response/Progress/Benefit: [] Pt participated at times during the group discussion. Attentive. Daily symptom tracker notes 03/29 for anxiety. Pt reports being ?pretty stressed? however did not elaborate on the triggers. Reports uncertainty and intrusive thoughts. ? I know its all in my head?. Has been incorporating grounding and other skills he has learned to help with intrusive and obsessive thoughts with benefits. Able to see his progress as the thoughts and anxiety are not preventing him from functioning. Progress noted. Benefited from group support, encouragement, and feedback. Will continue in IOP to maintain safety, stabilize mood, and improve functioning. Narrative Note: []
--- NOTE | 2024-08-24 10:10 | BH.SGPN.GN ---
Behaviors/Verbalizations/Mental Status: [] Eye contact is good. Motor activity is appropriate. Appearance is casual. Speech is Appropriate. Mood is euthymic. Affect is congruent. Thoughts are linear and logical. No evidence of psychosis. Client Response/Progress/Benefit: [] Pt receptive to session AEB listening attentively to others and taking notes. Pt attentive and contributed throughout psychoeducation on the cognitive triangle and maintenance cycles. Pt engaged during group discussion reviewing the impact of daily activities and behaviors in either reinforcing unhealthy maintenance cycles and depression or assisting in reducing symptoms (?down? vs ?up? activities). Pt participated during interactive discussion in which pts identified their own common up activities (shower, dancing, body movement, pets) and down activities (isolation, avoidance, sad music, not taking meds).Identified an up activities she can complete today which was yard work and texting a friend. Appeared to benefit from increased awareness of current behaviors and impact these have on mental health. Will continue IOP to prevent decompensation, increase healthy coping, and improve functioning. Narrative Note: []
--- NOTE | 2024-08-24 10:10 | BH.SGPN.GN ---
Behaviors/Verbalizations/Mental Status: []Eye contact is good. Motor activity is appropriate. Appearance is casual. Speech is Appropriate. Mood is anxious. Affect is congruent. Thoughts are linear and logical. No evidence of psychosis. Client Response/Progress/Benefit: [] Pt receptive to session AEB listening attentively to others and taking notes. Pt attentive and contributed throughout psychoeducation on the cognitive triangle and maintenance cycles. Pt engaged during group discussion reviewing the impact of daily activities and behaviors in either reinforcing unhealthy maintenance cycles and depression or assisting in reducing symptoms (?down? vs ?up? activities). Pt participated during interactive discussion in which pt identified their own common up activities (gym, yardwork, texting friend, and writing) and down activities (being on phone, not engaging in hygiene, isolating, and coping with food). Appeared to benefit from increased awareness of current behaviors and impact these have on mental health. Will continue IOP to prevent decompensation, decrease anxious avoidance, and improve coping.
--- NOTE | 2024-08-29 10:05 | BH.SGPN.GN ---
Behaviors/Verbalizations/Mental Status: []Pt alert and oriented, neatly dressed and groomed. Eye contact fair. Motor activity appropriate. Speech within normal limits. Affect congruent, mood anxious. Thoughts linear, logical, no signs of hallucinations or delusions Client Response/Progress/Benefit: [] Pt took notes and contributed to group discussions. Attentive during psychoeducation on growth mindset. Interactive group discussion on fixed mindset in which group verbalized their current fixed mindsets and how they affect their mental health. Pt shared common fixed mindset thoughts they have. Pt shared a personal fixed thought I'll always have these compulsions at the level they are at now.? Pt able to connect negative impact fixed thoughts have on functioning. Pt benefited from increased awareness of growth mindset and fixed thoughts and how fixed thoughts impact their mental health. Will continue IOP tx to decrease anxious avoidance, improve healthy coping, and prevent decompensation.
--- NOTE | 2024-08-29 11:10 | BH.SGPN.GN ---
Behaviors/Verbalizations/Mental Status: []Pt alert and oriented, neatly dressed and groomed. Eye contact good. Motor activity appropriate. Speech within normal limits. Affect congruent, mood content. Thoughts linear, logical, no signs of hallucinations or delusions. Client Response/Progress/Benefit: [] Pt was an active participant during activity and discussion. Pt did well to remain attentive and participate as group worked on identifying characteristics and benefits of adopting a growth mindset. Worked with fellow participants in reframing the example fixed thoughts into growth mindset thoughts. Pt worked on changing own fixed thought. Pt?s reframed thought was ?with help I can lower my compulsions.? Pt attentive during discussion about different strategies that can help with fostering a growth mindset. Pt appeared to benefit from challenging own thoughts and engaging in the activity. Pt will continue IOP tx to increase distress tolerance, improve daily functioning, and reduce compulsions. ?? Narrative Note: []
--- NOTE | 2024-08-29 13:28 | BH.MDN_ITS ---
Multi-Disciplinary Note Note 45-min Individual: Time Started:: 09:05 Date: 08/29/24 Purpose of session/treatment goals addressed:: To work on pt's ERP goals and to review homework/progress from last session. Eye Contact:: Good Motor Activity:: Appropriate Appearance:: Neat Speech:: Appropriate and Soft Mood:: Anxious Affect:: Congruent Thoughts:: Linear, Logical, Other (pt reports some mental compulsions present) and No evidence of hallucinations/delusions noted Staff Interventions:: thought challenging, motivational interviewing, psychoeducation on: (reviewed the ERP process), CBT techniques, mindfulness skills, discharge planning, strengths perspective, goal setting and other (ERP ) Client Response:: Pt responded well to session, open to meeting with therapist. Pt reports he did somewhat well with his ERP goals this past week. Pt shared he dreaded doing them at times due to anxiety, but he has been working on being consistent. Pt reports his compulsions of checking the doors, turning off his light, and some mental compulsions are basically gone. However, pt is still struggling with not engaging in his bedtime compulsions- specially his bedside table and getting in and out of bed. Discussed ways he can spoil his compulsions such as telling himself one of his self-talk statements it doesn't matter if I do this because I won't sleep anyway. This will help pt disprove his obsessions and gain new evidence. Pt shared he has been sleeping despite telling himself the songs he listens to will not make him sleep. This was good evidence gathering for pt and he was able to see progress. Pt and therapist watched 20 minutes of [employer] and pt's SUDs started at a 5 and got up to a 6- 7. Pt shared his OCD was telling him to turn off the movie. Pt also shared he was worried about resisting compulsions when he got home. Pt recognizes that he does not have to be perfect, and now he knows what he can do if he does engage. Pt was able to get his SUDs down to a 5 before the end of session. Pt continues to do well with ERP and he is encouraged to share his progress with his support people. Risks/Concerns:: Pt denies any suicidal ideations, plan, or intent. Pt denies any thoughts of . Progress Toward Goals/Plan:: Pt is making progress towards his tx goals AEB pt's report of increased ability to manage distress and report of reduced compulsions. Pt has been able to reduce, but not eliminate all his compulsions. Pt was given ideas for spoiling his compulsions if he does engage- a technique used in ERP. Pt will continue with his current ERP goal as pt recognizes he can be more consistent with his goal and further reduce compulsions. Pt will continue IOP tx for one more week to reinforce healthy coping skills and further reduce OCD symptoms. Time Stopped:: 09:50
--- NOTE | 2024-08-31 09:00 | BH.SGPN.GN ---
Behaviors/Verbalizations/Mental Status: [] Eye contact is good. Motor activity is appropriate. Appearance is casual. Speech is Appropriate. Mood is euthymic. Affect is full. Thoughts are linear and logical. No evidence of psychosis. Reviewed daily check in sheet and no reports of suicidal ideations or intent Client Response/Progress/Benefit: [] Pt participated at times during the group discussions. Attentive. Daily symptom tracker notes limited distress. Able to identify mental health wins and healthy habits. Reports stress yesterday however was able to utilize internal and external coping skills to minimize impact on functioning. Has been consistent with skills and is seeing benefits. Progress noted. Benefited from group support, encouragement, and feedback. Will continue in IOP to maintain gains. Narrative Note: []
--- NOTE | 2024-08-31 10:10 | BH.SGPN.GN ---
Behaviors/Verbalizations/Mental Status: [] Eye contact is good. Motor activity is appropriate. Appearance is casual. Speech is Appropriate. Mood is anxious. Affect is congruent. Thoughts are linear and logical. No evidence of psychosis. Client Response/Progress/Benefit: [] Client engaged participant at times during group session as evidenced by contributions during group discussions, appearing to listen to others, and taking notes. Client engaged in discussion about barriers that keep people from having difficult confrontations. Group identified potential reasons individuals avoid difficult conversations which included; feeling uncomfortable, reaction of others, fear, avoid conflict. Group also identified benefits to having crucial conversations. Pt identified things they do that impact their communication try to win an arguement, reassurance seeking. Client seemed to benefit from increased awareness and education about importance of having difficult conversations and recognizing the impact of avoiding such conversations. Client to continue IOP to prevent decompensation, maintain safety, and decrease intrusive thoughts. Narrative Note: []
--- NOTE | 2024-08-31 11:10 | BH.SGPN.GN ---
Behaviors/Verbalizations/Mental Status: []Pt alert and oriented, casually dressed and groomed. Eye contact good. Motor activity appropriate. Speech within normal limits. Affect congruent, mood euthymic. Thoughts linear, logical, no signs of hallucinations or delusions. Client Response/Progress/Benefit: [] Pt was an active participant, engaged in activities and discussion. Pt able to identify ways they negatively contribute to crucial conversations and pt was engaged during psychoeducation of the different ways to build interpersonal effectiveness skills. Pt and peers practiced mirroring and active listening in partners. Group reviewed [employer] and used the handout to help map out how they would like a crucial conversation in their life to go. 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 Pt appeared to benefit from learning and practicing interpersonal effectiveness skills. Pt will continue IOP tx to promote mood stability, increase distress tolerance, and further reduce compulsions. Narrative Note: []
--- NOTE | 2024-08-31 11:24 | PCM.BH.PN ---
Intake Vital Signs 08/04/24 12:42 08/31/24 11:24 Height 1.88 m 1.88 m Intake Visit Reasons: MDD, OCD Allergies No Known Allergies Allergy (Verified 07/19/24 10:55) Medications ?Medication ?Instructions ?Recorded ?Confirmed ?Type magnesium oxide 400 mg (241.3 mg 400 mg PO QHS 02/12/24 07/19/24 History magnesium) tablet trazodone 50 mg tablet 50 mg PO QHS PRN sleep #7 tabs 02/12/24 07/19/24 Rx hydroxyzine pamoate 50 mg capsule 50 mg PO BID PRN anxiety 07/19/24 07/19/24 History fluoxetine 40 mg capsule 40 mg PO DAILY #30 caps 08/31/24 Rx HPI () History of Present Illness History provided by: patient Chief complaint: Low episodes HPI: -Current psychiatric medications: Prozac 30 mg, off clomipramine []. Doing well, off clomiprimine, 30mg of prozac, 3 weeks, last week couple depressive episodes, since off clompirimine had some down feelings, sleeping very well, asleep w/in 10 minutes. Good energy, appetite good, occasional nausea, gets improved w/ eating, passive SI last week. OCD doign well w/ Lisa w/ exposure therapy, present -SUBJECTVE: Patient reports he has been on 30 mg of Prozac for around 3 weeks and has been off of clomipramine for a couple weeks, since going off of clomipramine he has noted several episodes where he would feel down and he does not feel his mood is as stable as it was, he also notes that a week or 2 ago he was driving and had the passive thought of driving into traffic, he did not have any intent to do so but noted the fleeting thought that was the first time that it happened in a while. He is not having that thought anymore, was under stress at that time due to traveling and then turning around and traveling again given the stress of traveling and the money as well. Feeling little bit better than he was then but still mood somewhat decreased from before. Sleep is fair currently, notes occasional nausea in the middle of the day but has not been having the lower GI problems since clomipramine was stopped. No present SI or HI. Does not note any specific side effects from the Prozac unless the nausea is associated and he is unsure but notes last time he was on Prozac he did not have any problems with nausea and he notes when he does feel little bit nauseous midday if he eats the feeling improves. Developmental History Developmental History: LILIAN is the [ ORDER]. The pt was born and raised in [ ]. Education level completed [ ]. Pt describes his/her childhood as [ ]. Exam Mental Status Exam- Psych () Appearance casually dressed, adequately groomed and no apparent distress Attitude cooperative and calm Activity/Motor Behavior other (Fair eye contact) Speech regular rate and regular volume Mood other (Little bit down today) Affect other (Slightly restricted) Thought Process linear and logical Thought Content no delusions and no hallucinations Suicidal Ideation none (None since last week) Homicidal Ideation none Attention intact Concentration intact Sensorium/Orientation awake and alert Memory/Cognition intact Insight good Judgement good Assessment & Plan () Assessment & Plan (1) Major depressive disorder, recurrent severe without psychotic features: Problem Details: Plan: Patient on 30 mg of Prozac, since the clomipramine was discontinued he has had a relapse of depressive symptoms and had the fleeting SI, patient agreeable to increasing Prozac to 40 mg (2) OCD (obsessive compulsive disorder): Problem Details: Plan: Patient notes that the current work he is doing is helping with his OCD behaviors and while they are still present he is beginning to handle them better Medications: New fluoxetine 40 mg PO DAILY 30 caps 0RF Discontinued fluoxetine Discontinued Reason: Ordered 10 mg PO DAILY 30 days 30 caps 0RF Visit Details Comments: Spent a total of [ ] minutes on the date of the service which included [ ]. Charges/Coding Behavior Health Behavior Health EST Pt E/M: 63224 Est Pt Level IV
--- NOTE | 2024-09-01 09:05 | BH.SGPN.GN ---
Behaviors/Verbalizations/Mental Status: [] Eye contact is good. Motor activity is appropriate. Appearance is casual. Speech is Appropriate. Mood is anxious. Affect is congruent. Thoughts are linear and logical. No evidence of psychosis. Reviewed daily check in sheet and no reports of suicidal ideations or intent. Client Response/Progress/Benefit: [] Pt participated at times during the group discussions. Attentive. Minimal distress on daily symptom tracker. Able to identify mental health wins and healthy habits. Utilized skills on consistent basis. Increase confidence in his ability to manage intrusive thoughts. Progress noted. Benefited from group support, encouragement, and feedback. Set to discharge next week which has caused some fear that he will decompensate. Will continue in IOP to maintain gains. Narrative Note: []
--- NOTE | 2024-09-01 11:15 | BH.SGPN.GN ---
Behaviors/Verbalizations/Mental Status: []Pt alert and oriented, casually dressed and groomed. Eye contact good. Motor activity appropriate. Speech within normal limits. Affect congruent, mood content. Thoughts linear, logical, no signs of hallucinations or delusions. Client Response/Progress/Benefit: [] Pt responded well to session, engaged and contributing. Pt discussed with group things that contribute to mental wellness life. With peers, pt discussed things that would sabotage one's mental health wellness. Pt identified things pt personally does to sabotage as avoidance, perfectionism, and unrealistic expectations. Pt attentive during psychoeducation on ways to reduce self-sabotage and pt selected more consistently communicating with his supports?as the skill that could help pt reduce self-sabotaging behaviors. Pt appeared to benefit from learning skills and gaining awareness of self-sabotaging behaviors. Pt will continue IOP tx to prevent decompensation, improve anxiety management skills, and combat negative self-talk. Narrative Note: []
--- NOTE | 2024-09-01 15:00 | BH.SGPN.GN ---
Behaviors/Verbalizations/Mental Status: [] Pt alert and oriented, casually dressed and groomed. Eye contact good. Motor activity appropriate. Speech within normal limits. Mood: depressed. Affect: congruent. Thoughts linear, logical, no signs of hallucinations or delusions. Client Response/Progress/Benefit: [] Pt was an active participate during group discussions. Attentive during psychoeducation on self-sabotage and its impact on mental health. Worked with peers to identify reasons individuals perform self-sabotage behaviors (fear of rejection, learned behavior, coping mechanism, fear of failure, insecurity, and feeling like they are not worthy). Pt identified the forms of self-sabotage that impact their mental health the most which included (isolation, perfectionism, lashing out, procrastination, poor communication and people-pleasing). Seemed to benefit from gaining awareness about the self-sabotage. Pt to continue IOP tx to prevent decompensation, decrease intrusive thoughts, and increase healthy coping.
--- NOTE | 2024-09-04 09:00 | BH.SGPN.GN ---
Behaviors/Verbalizations/Mental Status: [] Pt alert and oriented, neatly dressed and groomed. Eye contact good. Motor activity appropriate. Speech within normal limits. Affect congruent, mood euthymic. Thoughts linear, logical, no signs of hallucinations or delusions. Reviewed pt?s symptom tracker, no risk for suicidal ideation, plan, or intent 09/04/24. Client Response/Progress/Benefit: [] Pt was an active participant in group discussions. Attentive. Able to identify mental health wins including feeling ?pretty good overall? and using his coping skills consistently. Pt's stressor today is ?ending IOP and feeling worried about not having support.? The group offered pt encouragement and emotional support which pt reported was helpful. Pt is feeling calm this morning. Pt receptive to feedback from peers. Progress noted. Benefited from group support, encouragement, and feedback. Will continue IOP tx to promote mood stability, reinforce healthy coping skills, and establish aftercare. Narrative Note: []
--- NOTE | 2024-09-04 10:00 | BH.SGPN.GN ---
Behaviors/Verbalizations/Mental Status: [] Client alert and oriented, casually dressed and groomed. Eye contact good. Motor activity appropriate. Speech within normal limits. Affect anxious. Mood is congruent. Thoughts linear, logical, no signs of hallucinations or delusions. Client Response/Progress/Benefit: [] Pt responded well to session AEB sharing and listening attentively to others. Group provided examples of types of support (professional, pets, hobbies, community, spouse, annmarie, etc) as well as benefits of having social support, including: validation, get perspective, and accountability. Pt also participated in group discussion regarding the barriers to accessing support identifying examples to include: negative thinking, lack of communication, and lack of trust. Pt participated in experiential activity illustrating the impact communication, boundaries, and patience play in creating healthy support systems. Pt appeared to benefit from increased knowledge of the benefits of social support and greater self-awareness. Pt to continue IOP to prevent decompensation, decrease intrusive thoughts, and increase healthy coping. Narrative Note: []
--- NOTE | 2024-09-04 10:31 | BH.AFTERPLAN ---
Aftercare Plan Demographics Treatment End Date:: 09/08/24 Psychiatrist:: Radha Damon Psychiatrist Office #:: [id number] [facility]/IOP Therapist:: Lisa Levi Therapist Phone #:: [phone] Medications Home Medications magnesium oxide 400 mg (241.3 mg magnesium) tablet 400 mg PO QHS 02/12/24 trazodone 50 mg tablet 50 mg PO QHS PRN sleep #7 tabs 02/12/24 hydroxyzine pamoate 50 mg capsule 50 mg PO BID PRN anxiety 07/19/24 fluoxetine 40 mg capsule 40 mg PO DAILY #30 caps 08/31/24 Plan Details Progress/Aftercare Plan Details:: Anand has responded well to treatment as evidenced by Anand consistently attending IOP sessions and his reduction of DSM-5 scores since admission. Anand was always attentive and receptive to learning during group and individual sessions. Anand actively applied coping skills outside of IOP and reports overall his mood is improved and he is functioning better than he was several months ago. Anand?s overall symptom reduction is 30% since admission with depression decreasing by 25%, feeling detached decreasing by 100%, and anxiety decreasing by 38%. Anand has increased self-compassion and faced many hard things while doing exposure therapy. Most importantly, Anand has become more vulnerable, resilient, and confident in his abilities. Anand will follow up with [facility] for medication management and Dr. iSta Espino for individual counseling. Strategies for Success:: 1. Opposite action! Continue to break that cycle of anxiety and depression by not letting emotions be the only drivers of your bus. Remember you do have the power to get off on a new exit. 2. Remember that thoughts are thoughts NOT facts! You have power in if you give thoughts the time of day or not. 3. self-care! You deserve to take time for you and you also deserve to face the not so fun self-care like sitting with the uncomfortable and not engaging in compulsions 4. Self-compassion! You are human and you will make a mistake?BUT that doesn?t mean you are a failure or not good enough. Give yourself credit for all the wonderful things you do. 5. continue working on your fear ladder! You have done so well with it. 6. Practice positive self-talk and keep track of your wins. 7. Remember progress isn?t linear! You may have a setback or bump in the road, but that doesn?t mean you?ve lost all progress. 8. self-reflection and self-awareness. 9. Delay, Distract, Decide 10. Live in the [place]quier[place]!! Appointments Appointments/Referrals to Other Services:: 1. Follow up with [facility] Good for medication management. 2. Sita Espino for individual therapy. 3. IOP aftercare for maintenance and mental health support starting 09/14/24 and every after for 8 weeks from 2-3:30pm.
--- NOTE | 2024-09-04 10:31 | BH.AFTERPLAN ---
Aftercare Plan Demographics Treatment End Date:: 09/08/24 Psychiatrist:: Radha Damon Psychiatrist Office #:: [id number] [facility]/IOP Therapist:: Lisa Levi Therapist Phone #:: [phone] Medications Home Medications magnesium oxide 400 mg (241.3 mg magnesium) tablet 400 mg PO QHS 02/12/24 trazodone 50 mg tablet 50 mg PO QHS PRN sleep #7 tabs 02/12/24 hydroxyzine pamoate 50 mg capsule 50 mg PO BID PRN anxiety 07/19/24 fluoxetine 40 mg capsule 40 mg PO DAILY #30 caps 08/31/24 Plan Details Progress/Aftercare Plan Details:: Anand has responded well to treatment as evidenced by Anand consistently attending IOP sessions and his reduction of DSM-5 scores since admission. Anand was always attentive and receptive to learning during group and individual sessions. Anand actively applied coping skills outside of IOP and reports overall his mood is improved and he is functioning better than he was several months ago. Anand?s overall symptom reduction is 30% since admission with depression decreasing by 25%, feeling detached decreasing by 100%, and anxiety decreasing by 38%. Anand has increased self-compassion and faced many hard things while doing exposure therapy. Most importantly, Anand has become more vulnerable, resilient, and confident in his abilities. Anand will follow up with [facility] for medication management and Dr. Sita Espino for individual counseling. Strategies for Success:: 1. Opposite action! Continue to break that cycle of anxiety and depression by not letting emotions be the only drivers of your bus. Remember you do have the power to get off on a new exit. 2. Remember that thoughts are thoughts NOT facts! You have power in if you give thoughts the time of day or not. 3. self-care! You deserve to take time for you and you also deserve to face the not so fun self-care like sitting with the uncomfortable and not engaging in compulsions 4. Self-compassion! You are human and you will make a mistake?BUT that doesn?t mean you are a failure or not good enough. Give yourself credit for all the wonderful things you do. 5. continue working on your fear ladder! You have done so well with it. 6. Practice positive self-talk and keep track of your wins. 7. Remember progress isn?t linear! You may have a setback or bump in the road, but that doesn?t mean you?ve lost all progress. 8. self-reflection and self-awareness. 9. Delay, Distract, Decide 10. Live in the [place]!! Appointments Appointments/Referrals to Other Services:: 1. Follow up with Lidia Good for medication management. 2. Sita Espino for individual therapy. 3. IOP aftercare for maintenance and mental health support starting 09/14/24 and every after for 8 weeks from 2-3:30pm.
--- NOTE | 2024-09-04 11:05 | BH.SGPN.GN ---
Behaviors/Verbalizations/Mental Status: []Client alert and oriented, casually dressed and groomed. Eye contact good. Motor activity appropriate. Speech within normal limits. Affect congruent, mood euthymic. Thoughts linear, logical, no signs of hallucinations or delusions. Client Response/Progress/Benefit: [] Pt participated throughout AEB contributing to discussion, providing examples, and taking notes. Pt provided input during discussion on the types of support our supports can provide. Pt able to identify current support system and barriers that get in the way of using supports. Pt reported after identifying what type of supports pt receives, pt gained awareness that pt could benefit from more emotional support by putting more effort into communicating these needs with his and opening up more. Pt seemed to benefit from identifying the type of support pt needs to work on improving. Pt recommended to continue IOP tx to promote increase positive self-talk, improve communication, and prevent decompensation. Narrative Note: []
--- NOTE | 2024-09-06 09:05 | BH.SGPN.GN ---
Behaviors/Verbalizations/Mental Status: [] Eye contact is good. Motor activity is appropriate. Appearance is casual. Speech is Appropriate. Mood is anxious. Affect is congruent. Thoughts are linear and logical. No evidence of psychosis. Reviewed daily check in sheet and no reports of suicidal ideations. Client Response/Progress/Benefit: [] Pt was an active participant in group discussions. Attentive. Daily symptom tracker notes 2/5 for anxiety and /5 for depression. Shared being anxiety this morning. ? I?m in my head?. Anxiious last night to the point where he took PRN medication. Ruminations about his mental health after he discharges from [facility] this week. These thoughts can lead to numerous other intrusive thoughts. Overall he is able to identify increased confidence in his ability to manage thoughts/anxiety compared to 2 months ago. Progress noted. Benefited from group support, encouragement, and feedback. Will continue in [facility] to maintain safety, decrease intrusive thoughts, and increase healthy coping. Narrative Note: []
--- NOTE | 2024-09-06 09:05 | BH.SGPN.GN ---
Behaviors/Verbalizations/Mental Status: [] Eye contact is good. Motor activity is appropriate. Appearance is casual. Speech is Appropriate. Mood is anxious. Affect is congruent. Thoughts are linear and logical. No evidence of psychosis. Reviewed daily check in sheet and no reports of suicidal ideations. Client Response/Progress/Benefit: [] Pt was an active participant in group discussions. Attentive. Daily symptom tracker notes 2/5 for anxiety and /5 for depression. Shared being anxiety this morning. ? I?m in my head?. Anxiious last night to the point where he took PRN medication. Ruminations about his mental health after he discharges from [facility] this week. These thoughts can lead to numerous other intrusive thoughts. Overall he is able to identify increased confidence in his ability to manage thoughts/anxiety compared to 2 months ago. Progress noted. Benefited from group support, encouragement, and feedback. Will continue in [facility] to maintain safety, decrease intrusive thoughts, and increase healthy coping. Narrative Note: []
--- NOTE | 2024-09-06 10:00 | BH.SGPN.GN ---
Behaviors/Verbalizations/Mental Status: []Eye contact is good. Motor activity is appropriate. Appearance is casual. Speech is Appropriate. Mood is anxious. Affect is congruent. Thoughts are linear and logical. No evidence of psychosis. Client Response/Progress/Benefit: [] Pt was an active participant in group discussions. Attentive during psychoeducation. Contributed during interactive discussions in which peers attempted to define crisis. Group identified crisis examples. Group also worked together to identify warning signs and unhealthy responses to crisis which included shutting down, isolation, avoidance, over-thinking, disordered eating, and self-harm. Pt identified top 3 warning signs as: racing thoughts, reassurance seeking, and avoidance. Benefited from increased understanding of crisis and awareness of personal responses to crisis. Pt will continue IOP tx to promote mood stability, reduce negative thinking patterns, and increase distress tolerance.
--- NOTE | 2024-09-06 13:55 | BH.MDN_ITS ---
Multi-Disciplinary Note Note 45-min Individual: Time Started:: 11:12 Date: 09/06/24 Purpose of session/treatment goals addressed:: To address current stressors and discuss strategies to help cope with these stressors. Another goal was to discuss discharge and aftercare. Eye Contact:: Good Motor Activity:: Appropriate Appearance:: Casual Speech:: Appropriate and Soft Mood:: Anxious and Other (fatigued) Affect:: Congruent Thoughts:: Linear, Logical and No evidence of hallucinations/delusions noted Staff Interventions:: CBT techniques, discharge planning, strengths perspective, reviewed DSM-5 and other (completed a maintenance plan.) Client Response:: Pt responded well to session, open to meeting with therapist. Pt reports he is feeling somewhat groggy this morning because was having trouble falling asleep and he had to take his PRN anxiety medication yesterday and this always makes me tired the next day. Pt shared he was not sure what triggered his anxiety last night, but he shared he is handling it well and reminding himself that this is a good time to disprove his OCD about sleep. Pt stated he has been more consistent with doing ERP homework and he has feels it continues to help him. Pt shared he and his have both noted a reduction in compulsions such as checking the doors/locks and getting in and out of bed. Pt stated he did not think he would make this much progress and he looks forward to continuing this work with his outpatient therapist. Pt plans to call his outpatient therapist today. Pt receptive to working on a maintenance plan for OCD/anxiety and depression. Pt's plan included pt's triggers, warning signs, and coping skills he can use. Pt identified coping skills for OCD and anxiety to include mindfulness skills, rapp mind, reviewing his ERP homework, and talking to someone. Pt also wants to continue engaging in his hobbies and practicing gratitude. Risks/Concerns:: Pt denies any suicidal ideations, plan, or intent. Pt denies any thoughts of . Progress Toward Goals/Plan:: Pt has made progress while in IOP tx and he feels that his tx goals are met and his functioning has improved. Pt's DSM-5 scores have also decreased by 30% since admission as well. Pt completed his maintenance plan and reported this was helpful as pt can use a reminder sometimes. Pt will attend [facility] tx for one more session to reinforce healthy coping skills and establish aftercare. Time Stopped:: 11:50
--- NOTE | 2024-09-08 09:05 | BH.SGPN.GN ---
Behaviors/Verbalizations/Mental Status: [] Eye contact is good. Motor activity is appropriate. Appearance is casual. Speech is Appropriate. Mood is euthymic. Affect is full. Thoughts are linear and logical. No evidence of psychosis. Reviewed daily check in sheet and no reports of suicidal ideations or intent. Client Response/Progress/Benefit: [] Pt participated at times during the group discussions. Attentive. Daily symptom tracker notes limited distress. Shared with the group that he is discharging successfully from [facility] today. He shared his mental health journey while in [facility] as well as some of the groups and skills he has found most helpful. He discussed his intrusive thoughts and how ?rapp mind? strategies have been helpful. Also talked about grounding, distraction, and mindfulness skills. Progress noted. Benefited from [facility] group support, encouragement, and feedback. Will be discharged today. Narrative Note: []
--- NOTE | 2024-09-08 09:05 | BH.SGPN.GN ---
Behaviors/Verbalizations/Mental Status: [] Eye contact is good. Motor activity is appropriate. Appearance is casual. Speech is Appropriate. Mood is euthymic. Affect is full. Thoughts are linear and logical. No evidence of psychosis. Reviewed daily check in sheet and no reports of suicidal ideations or intent. Client Response/Progress/Benefit: [] Pt participated at times during the group discussions. Attentive. Daily symptom tracker notes limited distress. Shared with the group that he is discharging successfully from [facility] today. He shared his mental health journey while in [facility] as well as some of the groups and skills he has found most helpful. He discussed his intrusive thoughts and how ?rapp mind? strategies have been helpful. Also talked about grounding, distraction, and mindfulness skills. Progress noted. Benefited from [facility] group support, encouragement, and feedback. Will be discharged today. Narrative Note: []
--- NOTE | 2024-09-08 10:15 | BH.SGPN.GN ---
Behaviors/Verbalizations/Mental Status: []Pt alert and oriented, neatly dressed and groomed. Eye contact good. Motor activity appropriate. Speech within normal limits. Affect congruent, mood euthymic and anxious. Thoughts linear, logical, no signs of hallucinations or delusions. Client Response/Progress/Benefit: [] Pt participated during small group discussions. Attentive during psychoeducation about defense mechanisms. Showed engagement during small group discussions and helped group identify which defense mechanisms were maladaptive, adaptive, or ?somewhere in the alves.? Pt worked with small group on identifying how each defense mechanism can impact mental health and gave examples. Pt stated he has gained awareness of his use of displacement, sublimation, and self-discipline. Pt reported benefits from identifying examples of different defense mechanisms and normalizing why they are used. Seemed to benefit from gaining awareness about the different defense mechanisms. Pt will discharge from IOP tx as pt has met his tx goals and no longer meets criteria for IOP level of care. Narrative Note: []
--- NOTE | 2024-09-08 11:15 | BH.SGPN.GN ---
Behaviors/Verbalizations/Mental Status: []Pt alert and oriented, casually dressed and groomed. Eye contact good. Motor activity appropriate. Speech within normal limits. Affect congruent, mood anxious and euthymic. Thoughts linear, logical, no signs of hallucinations or delusions. Client Response/Progress/Benefit: [] Pt responded well to session, participating in activity and small group discussion. Group reviewed the rest of the defense mechanisms and discussed how these are adaptive, maladaptive, or somewhere in the alves. Pt's defense mechanisms included displacement, self-discipline, and sublimation. Shared that these reinforce negative self-talk. Pt listened to ladle pourer teach different skills to help pt?s cope with or change their defense mechanisms. Pt appeared to benefit from gaining insight to the different defense mechanisms and learning coping skills. Shared wanting to begin practicing more self-compassion and vulnerability with supports. Pt will d/c from IOP tx and begin individual outpatient tx to maintain gains and prevent decompensation. Narrative Note: []
--- NOTE | 2024-09-08 11:15 | BH.SGPN.GN ---
Behaviors/Verbalizations/Mental Status: []Pt alert and oriented, casually dressed and groomed. Eye contact good. Motor activity appropriate. Speech within normal limits. Affect congruent, mood anxious and euthymic. Thoughts linear, logical, no signs of hallucinations or delusions. Client Response/Progress/Benefit: [] Pt responded well to session, participating in activity and small group discussion. Group reviewed the rest of the defense mechanisms and discussed how these are adaptive, maladaptive, or somewhere in the alves. Pt's defense mechanisms included displacement, self-discipline, and sublimation. Shared that these reinforce negative self-talk. Pt listened to wheel mill operator teach different skills to help pt?s cope with or change their defense mechanisms. Pt appeared to benefit from gaining insight to the different defense mechanisms and learning coping skills. Shared wanting to begin practicing more self-compassion and vulnerability with supports. Pt will d/c from IOP tx and begin individual outpatient tx to maintain gains and prevent decompensation. Narrative Note: []
--- NOTE | 2024-09-08 15:00 | BH.DS_ITS ---
Discharge Summary Demographics Date of Admission:: 07/19/24 Discharge Date: 09/08/24 Presenting Problems at Admission:: Pt is a 24-year-old male with a history of OCD and MDD. Pt was referred to [facility] due to worsening symptoms of anxiety and depression over the past few months. Pt's mental health began to decompensate after a fall out with a friend that triggered panic and insomnia. At admission, pt presents with hopelessness, worthlessness, and passive thoughts of . Pt also has intrusive thoughts about killing himself and he has told this to his who has removed guns from the home. Pt has panic attacks several times a week. Pt's OCD is currently manifesting with sleep and includes rituals pt must do at night to get good sleep. Pt's symptoms are impacting his social functioning and his overall quality of life. Discharge Diagnoses:: Major depressive disorder, recurrent, severe without psychosis (F33.2); OCD (F42.2); Generalized anxiety disorder Reason for Discharge:: Pt has accomplished his tx goals AEB his self-report of improved functioning, reduced DSM-5 scores, and improved mood overall. Pt no longer meets criteria for [facility] level of care and will continue with outpatient counseling and IOP aftercare. Treatment Progress During Treatment & Response: Pt has responded well to treatment as evidenced by Pt consistently attending IOP sessions and his reduction of DSM-5 scores since admission. Pt was always attentive and receptive to learning during group and individual sessions. Pt actively applied coping skills outside of IOP and reports overall his mood is improved and he is functioning better than he was several months ago. Pt?s overall symptom reduction is 30% since admission with depression decreasing by 25%, feeling detached decreasing by 100%, and anxiety decreasing by 38%. Pt has increased self-compassion and faced many hard things while doing exposure therapy. Most importantly, Pt has become more vulnerable, resilient, and confident in his abilities. Pt will follow up with [facility] for medication management and Dr. Sita Espino for individual counseling. Issues Still to be Addressed:: Pt can continue to work on his ERP goals, increasing distress tolerance, and combatting distorted thought patterns. Discharge Recommendations/Instructions:: Pt is encouraged to follow up with Dr. Sita Espino for individual therapy. Pt sees Sita the week of 09/18/24. Pt will follow up with [facility] for medication management. Pt will follow up with IOP aftercare group. Discharge Handout
--- NOTE | 2024-09-08 15:00 | BH.DS_ITS ---
Discharge Summary Demographics Date of Admission:: 07/19/24 Discharge Date: 09/08/24 Presenting Problems at Admission:: Pt is a 24-year-old male with a history of OCD and MDD. Pt was referred to [facility] due to worsening symptoms of anxiety and depression over the past few months. Pt's mental health began to decompensate after a fall out with a friend that triggered panic and insomnia. At admission, pt presents with hopelessness, worthlessness, and passive thoughts of . Pt also has intrusive thoughts about killing himself and he has told this to his who has removed guns from the home. Pt has panic attacks several times a week. Pt's OCD is currently manifesting with sleep and includes rituals pt must do at night to get good sleep. Pt's symptoms are impacting his social functioning and his overall quality of life. Discharge Diagnoses:: Major depressive disorder, recurrent, severe without psychosis (F33.2); OCD (F42.2); Generalized anxiety disorder Reason for Discharge:: Pt has accomplished his tx goals AEB his self-report of improved functioning, reduced DSM-5 scores, and improved mood overall. Pt no longer meets criteria for [facility] level of care and will continue with outpatient counseling and IOP aftercare. Treatment Progress During Treatment & Response: Pt has responded well to treatment as evidenced by Pt consistently attending IOP sessions and his reduction of DSM-5 scores since admission. Pt was always attentive and receptive to learning during group and individual sessions. Pt actively applied coping skills outside of IOP and reports overall his mood is improved and he is functioning better than he was several months ago. Pt?s overall symptom reduction is 30% since admission with depression decreasing by 25%, feeling detached decreasing by 100%, and anxiety decreasing by 38%. Pt has increased self-compassion and faced many hard things while doing exposure therapy. Most importantly, Pt has become more vulnerable, resilient, and confident in his abilities. Pt will follow up with [facility] for medication management and Dr. Sita Espino for individual counseling. Issues Still to be Addressed:: Pt can continue to work on his ERP goals, increasing distress tolerance, and combatting distorted thought patterns. Discharge Recommendations/Instructions:: Pt is encouraged to follow up with Dr. Sita Espino for individual therapy. Pt sees Sita the week of 09/18/24. Pt will follow up with [facility] for medication management. Pt will follow up with IOP aftercare group. Discharge Handout
== END 2024-09-08 12:10 | disposition home or self-care (01) ==
LOC: BHIOP 07:15
PROVIDERS: PCP Family Medicine; Referring Provider Psychiatry & Neurology Psychiatry; Visit Provider Psychiatry & Neurology Psychiatry
DX: F33.2 Major depressive disorder, recurrent severe without psychotic features (principal); F42.9 Obsessive-compulsive disorder, unspecified
CPT/HCPCS: S9480; 90834; 90853

== ENCOUNTER 2024-10-19 11:35 | Outpatient (RCR) | payer BC, SELFPAY ==
--- NOTE | 2024-10-19 14:00 | BH.SGPN.GN ---
Behaviors/Verbalizations/Mental Status: []Pt alert and oriented, casually dressed and appropriately groomed. Eye contact good. Motor activity appropriate. Speech within normal limits. Affect congruent, mood euthymic. Thoughts linear, logical, no signs of hallucinations or delusions. Client Response/Progress/Benefit: []Client active participant in group session AEB providing contributions to group discussion and with intent to meet others. Client reported he has been following through with seeing his counselor and medication provider. Client stated overall since discharge from IOP he feels like he has been doing a good job with managing his moods and and keeping his anxiety from impacting his functioning. Client stated he was able [place] and did well with managing anxious thoughts especially at night. Client attentive to psychoeducation about gratitude and provided contributions throughout. Client created gratitude plan for the week. Client seemed to benefit from learning about gratitude and creating a week gratitude plan. Pt to continue IOP to promote utilization of healthy coping skills, continue working on managing depression and anxiety, and prevent decompensation.
--- NOTE | 2024-10-19 16:13 | BH.MTP ---
Master Treatment Plan Patient Information Program Physician:: Dr. Damon and Dr. Gross Primary Therapist:: Chana Kent [facility] Psychiatric Diagnoses Psychiatric Diagnoses:: Major depressive disorder, recurrent, severe without psychosis (F33.2); OCD (F42.2); Generalized anxiety disorder Estimated LOS Estimated LOS (in weeks):: 8 Problem/Goal #1 Problem/Goal #1 Stated Goal:: client will maintain or see a reduction in symptoms AEB client score on the DSM 5 cross-cutting measure and improve client's daily functioning. Objectives Objective #1: Stated Objective: Client will continue to consistently apply healthy coping skills to maintain progress made in IOP tx. Interventions: Through group therapy, client will review warning signs and triggers as well as healthy coping skills learned in IOP tx to successfully maintain gains while transitioning into outpatient therapy. Discharge Criteria: Client will have accomplished this goal when client's score on the DSM-5 cross-cutting measure has maintained or reduced over a 8 week period. Target Date: 12/14/24 Review Date: 11/16/24 Objective #2: Stated Objective: Client will learn and utilize 2-3 maintenance strategies to prevent decompensation from original IOP DSM-5 scores. Interventions: Through group therapy, client will be provided with education on healthy maintenance behaviors, relapse prevention techniques, and healthy coping strategies. Discharge Criteria: Client will have accomplished this goal when can report using at least 2 maintenance skills to prevent decompensation compared to original IOP DSM-5 scores
--- NOTE | 2024-10-24 14:20 | BH.COMM ---
Communication Note Communication with Client Communication Note: Patient completed IOP and presents today to start relapse prevention group which meets once weekly (1.5 hours) for 8 weeks. Case discussed with Dr. Gross with plan to admit with dx of F33.2 and f42.2
== END 2024-10-22 23:59 ==
LOC: BHOG 11:35
PROVIDERS: PCP Family Medicine; Referring Provider Student in an Organized Health Care Education/Training Program; Visit Provider Student in an Organized Health Care Education/Training Program
DX: F33.2 Major depressive disorder, recurrent severe without psychotic features (principal); F42.2 Mixed obsessional thoughts and acts
CPT/HCPCS: 90853

== ENCOUNTER 2024-10-24 07:20 | Outpatient (RCR) | payer BC, SELFPAY ==
--- NOTE | 2024-10-26 14:00 | BH.SGPN.GN ---
Behaviors/Verbalizations/Mental Status: []Pt alert and oriented, casually dressed and groomed. Eye contact good. Motor activity appropriate. Speech within normal limits. Affect congruent, mood content. Thoughts linear, logical, no signs of hallucinations or delusions. Client Response/Progress/Benefit: []Pt responded well to session AEB sharing and listening attentively to others. Pt has scheduled outpatient mental health appointments for weekly counseling and regular med management. Pt reports using skills of opposite action, taking small breaks, and reminding self of progress to maintain mood stability. Pt participated in group discussion defining affirmations and why they are important. Pt provided insight throughout clinician?s presentation of tips for writing personal affirmations and wrote their own affirmations, including ?I am resilient. In this moment, I am okay? and ?I have the skills to work through this?. Pt appeared to benefit from increased knowledge of affirmation writing skills and creating their own affirmation statements to remind themselves of outside tx environment. Will continue aftercare tx to promote consistent mental health maintenance and prevent decompensation. Narrative Note: []
--- NOTE | 2024-11-02 14:00 | BH.SGPN.GN ---
Behaviors/Verbalizations/Mental Status: []Pt alert and oriented, casually dressed and groomed. Eye contact good. Motor activity appropriate. Speech within normal limits. Affect congruent, mood euthymic. Thoughts linear, logical, no signs of hallucinations or delusions. Client Response/Progress/Benefit: [] Pt receptive of session, engaged throughout. Pt has been following up with his outpatient providers. Pt has been taking medications consistently and reports utilizing healthy coping skills outside of aftercare. These skills included: opposite action, exposure, self-care, and mindfulness. ?Receptive of discussion on sitting with the uncomfortable and emotional urges. Pt contributed to the discussion of distress tolerance and how building distress tolerance can help improve mood stability and resilience. Pt wants to keep building distress tolerance by ?calling my mom and being engaged in the conversation because it normally annoys me and I try to hurry off the phone.? Pt seemed to benefit from support from peers and increasing understanding of distress tolerance. Will continue aftercare to reinforce healthy coping skills and improve daily functioning. Narrative Note: []
--- NOTE | 2024-11-09 14:00 | BH.SGPN.GN ---
Behaviors/Verbalizations/Mental Status: []Client alert and oriented, casually dressed and groomed. Eye contact good. Motor activity appropriate. Speech within normal limits. Affect congruent, mood euthymic and stressed. Thoughts linear, logical, no signs of hallucinations or delusions. Client Response/Progress/Benefit: []Pt responded well to session AEB sharing and listening attentively to others. Pt reports following up with therapy and pt reports he is taking medications consistently. Pt stated using opposite action, asking for help, deep breathing, self-care, and journaling as primary coping skills used this past week. Pt participated in group discussion defining vulnerability, how and why we avoid it, and the benefits. Pt was an active participant and provided personal examples of being vulnerable and the positive things that came with this. Pt stated that pt would like to work on being vulnerable this week by continuing to open up to his . Will continue aftercare treatment to reinforce healthy coping skills and promote gains. Narrative Note: []
--- NOTE | 2024-11-09 15:27 | BH.TPR ---
Treatment Plan Review Demographics Date of Admission:: 10/19/24 Date of Treatment Plan Review:: 11/09/24 Admitting Diagnoses:: Major depressive disorder, recurrent, severe without psychosis (F33.2); OCD (F42.2); Generalized anxiety disorder Current Diagnoses:: Major depressive disorder, recurrent, severe without psychosis (F33.2); OCD (F42.2); Generalized anxiety disorder Patient Status Patient's Response to Treatment:: Pt continues to respond well to treatment AEB pt's consistent attendance, ongoing attentiveness and engagement in group discussions, and continued reporting use of skills outside treatment environment. Pt's symptoms are still 43% lower than they were at IOP admission. Status of Current Problems and Symptoms: Pt reports some ongoing symptoms of anxiety and OCD that mildly impact his life and functioning, but not significantly enough for a higher level of care. Pt reports he continues to work on reducing his compulsions and increasing self-confidence. Progress Problem #1: Problem Name:: Pt will maintain or see a reduction in sx Status of Goals:: Obj 1 - Complete with maintenance encouraged. Pt's depression decreased by 50% compared to IOP admission and anxiety has decreased by 25% compared to IOP admission. Obj 2 - complete with ongoing work encouraged. Pt had been reporting using opposite action, self-compassion, ERP, exercise, and thought dismissal to help with his OCD. Team Recommendations:: Recommended client continue IOP aftercare group in addition to attending regular outpatient counseling in order to maintain gains. Pt also recommended to continue working on self-compassion, practice self-care, and setting realistic goals.
== END 2024-11-21 23:59 ==
LOC: BHOG 07:20
PROVIDERS: PCP Family Medicine; Referring Provider Student in an Organized Health Care Education/Training Program; Visit Provider Student in an Organized Health Care Education/Training Program
DX: F33.2 Major depressive disorder, recurrent severe without psychotic features (principal); F42.2 Mixed obsessional thoughts and acts; F41.1 Generalized anxiety disorder
CPT/HCPCS: 90853

== ENCOUNTER 2024-11-22 08:01 | Outpatient (RCR) | payer BC, SELFPAY ==
--- NOTE | 2024-11-30 14:00 | BH.SGPN.GN ---
Behaviors/Verbalizations/Mental Status: []Pt alert and oriented, neatly dressed and groomed. Eye contact good. Motor activity appropriate. Speech within normal limits. Affect congruent, mood euthymic. Thoughts linear, logical, no signs of hallucinations or delusions. Client Response/Progress/Benefit: [] Pt took notes and contributed to group discussions. Pt reports he has been taking medications consistently and pt has been seeing her therapist. Pt identified coping skills he has been using which included: DDD, deep breathing, affirmations, grounding, and challenging inappropriate guilt. Pt engaged in discussion on habits and how they are formed. Pt gave examples of how to build healthy habits and reported benefitting from habit stacking. Pt shared he wants to work on building the habit of saying a few affirmations a day. Pt appeared to benefit from learning about building healthy habits and setting a habit goal. Will continue IOP tx to promote mood stability and use of healthy coping skills. Narrative Note: []
--- NOTE | 2024-12-14 15:35 | BH.DS_ITS ---
Discharge Summary Demographics Date of Admission:: 10/19/24 Discharge Date: 12/14/24 Presenting Problems at Admission:: Pt admitted to [facility] level of care due to OCD, depression, and overall anxiety symptoms hindering pt's ability to function at his baseline. Pt was admitted to [facility] aftercare to maintain gains made in IOP tx, further reduce symptoms, and improve distress tolerance. Discharge Diagnoses:: Major depressive disorder, recurrent, severe without psychosis (F33.2); OCD (F42.2); Generalized anxiety disorde Reason for Discharge:: Pt has accomplished tx goals AEB ability to maintain mood stability and gains made in IOP. Treatment Progress During Treatment & Response: Pt responded well to treatment AEB pt's consistent attendance, ongoing attentiveness and engagement in group discussions, and continued reporting use of skills outside treatment environment. Pt's symptoms are 52% lower than they were at IOP admission per the DSM-5. Pt's anxiety is 38% lower, depression is 75%, and anger is 100% lower than at IOP admission. Pt has been able to maintain consistent progress for an additional 8 weeks following IOP tx. Issues Still to be Addressed:: Pt can continue to work on his ERP goals, increasing distress tolerance, and combatting distorted thought patterns. Discharge Recommendations/Instructions:: Pt is encouraged to follow up with Dr. Sita Espino for individual therapy. Pt will follow up with [facility] for medication management. Discharge Handout
== END 2024-12-15 07:25 | disposition home or self-care (01) ==
LOC: BHOG 08:01
PROVIDERS: PCP Family Medicine; Referring Provider Student in an Organized Health Care Education/Training Program; Visit Provider Student in an Organized Health Care Education/Training Program
DX: F33.2 Major depressive disorder, recurrent severe without psychotic features (principal); F42.2 Mixed obsessional thoughts and acts; F41.1 Generalized anxiety disorder
CPT/HCPCS: 90853